=== PATIENT | male | born 1955 | race Caucasian/White ===

== ENCOUNTER 2024-12-02 10:25 | Emergency (ER) | payer MEDICARE, SELFPAY ==
[2024-12-02 10:42] VITALS: BP 118/71; PULSE 84; RESP 20; TEMP 36.8; O2SAT 99
--- NOTE | 2024-12-02 10:48 | ED.SKABFB ---
HPI - Skin/Abscess/Foreign Bdy General Chief complaint: Skin/Abscess/Foreign Body Stated complaint: poison allyson oak or sumac Time Seen by Provider: 12/02/24 10:48 Source: patient and RN notes reviewed Mode of arrival: ambulatory Limitations: no limitations History of Present Illness HPI narrative: 5-year-old male presents with concern for rash. Reports he was treated for poison allyson to her 3 weeks ago. Reports he was treated with triamcinolone and a Medrol Gato. Reports it mostly went away until the dose of the Medrol Gato decreased and then the rash came back. Reports he has been using done dystrophic, Lava soap and calamine lotion. Reports that triamcinolone did help very much. MD complaint: rash Related Data Home Medications ?Medication ?Instructions ?Recorded ?Confirmed ?Last Taken ?Type amlodipine 5 mg tablet mg 12/02/24 Unknown History atorvastatin 20 mg tablet mg 12/02/24 Unknown History levothyroxine 88 mcg tablet mcg 12/02/24 Unknown History lisinopril 5 mg tablet mg 12/02/24 Unknown History metformin 500 mg tablet mg 12/02/24 Unknown History methylprednisolone 4 mg tablets in mg 12/02/24 Unknown History a dose pack omeprazole 20 mg capsule,delayed mg 12/02/24 Unknown History release tamsulosin 0.4 mg capsule mg PO 12/02/24 Unknown History triamcinolone acetonide 0.1 % applic topical 12/02/24 Unknown History topical cream Allergies Allergy/AdvReac Type Severity Reaction Status Date / Time No Known Allergies Allergy Verified 12/02/24 10:39 Review of Systems Review of Systems: CONSTITUTIONAL: Denies malaise, chills, sweats, or fever. EYES: Denies redness, or discharge. ENT: Denies rhinorrhea, congestion, swollen lips, swollen tongue CARDIOVASCULAR: Denies chest pain, palpitations, or edema. RESPIRATORY: Denies cough or dyspnea. GASTROINTESTINAL: Denies abdominal pain, nausea, vomiting SKIN: Reports itchy rash on bilateral arms and legs MUSCULOSKELETAL: Denies joint pain or myalgia. NEUROLOGIC: Denies headache. All systems reviewed & are unremarkable except as noted in HPI and below PMFSH Comments At time of signature, agree with nursing past medical, surgical, social and family history. There is no relevant family history pertinent to the presenting complaint Exam Narrative: GENERAL: Well-appearing, well-nourished, and in no acute distress. HEAD: Normocephalic, atraumatic. EYES: PERRLA, conjunctivae clear, and EOMI. ENT: Mucous membranes moist. Oropharynx without edema, erythema or lesions. NECK: Supple. No lymphadenopathy CHEST: Clear to auscultation. No respiratory distress. HEART: Regular rate and rhythm. SKIN: Warm, dry. Raised Patches of erythematous papules noted to bilateral arms and legs NEURO: Alert and oriented x3. PSYCH: Normal mood and affect Course Course Emergency Course: Patient is aware of diagnosis, understands and agrees to treatment plan. Anticipatory guidance given. Patient agrees to follow-up as directed and is aware of reasons to seek care at the emergency department. Portions of this record may have been created with voice recognition software Level of Care: Express Care Visit Vital Signs Vital signs: Reviewed. MDM - Skin/Abscess/Foreign Bdy MDM Narrative Medical decision making narrative: Does not appear at this time to be erythema multiforme, bullous, SJS, TEN; no evidence at this time to suggest RMSF, endocarditis or Lyme disease; patient looks well, nontoxic and is tolerating oral intake; no neurologic signs or symptoms; no headache, photophobia or neck pain; afebrile; appropriate for initial outpatient treatment; discussed the importance of follow-up, patient agrees; question, viral exanthema, contact dermatitis, allergic dermatitis, eczema, urticaria. No soft palate or uvula edema, no tongue, lip edema or other mucosal involvement, no respiratory compromise, no stridor, no wheezing, no wheezing, no history of syncope, no hypotension, no nausea, vomiting, or diarrhea. Instructed patient to go to nearest ER immediately for any worsening symptoms including but not limited to: fever, spreading rash, pain, sore throat, headache, dizziness, chest pain, trouble breathing, or any symptoms concerning to the patient. Critical Care Time Critical Care Time Critical Care Time: No Discharge Plan Discharge Clinical Impression: Contact dermatitis Patient Disposition: Home Condition: Stable Instructions: Poison Allyson (ED) Additional Instructions: Prevention is always better than treatment. Learn to identify poison allyson, oak, and sumac and avoid it. Wear long sleeves, long pants, shoes, and socks. If you touched the plant, try to keep your hands away from your eyes, mouth, and face. Wash the skin thoroughly with soap and cool water as soon as possible. Scrub under the fingernails with a brush to prevent spreading of the resin to other parts of the body by touching or scratching. Remember to wash any clothing with soap and hot water as the resin can persist for many months and cause further dermatitis. You should NOT use antihistamine creams or lotions, anesthetic creams containing benzocaine, or antibiotic creams containing neomycin or bacitracin to the skin. These creams or ointments could make the rash worse. Antihistamines do not help to relieve itching caused by poison allyson dermatitis. For some people, adding oatmeal to a bath, applying cool wet compresses, and applying calamine lotion may help to relieve itching. Once the blisters begin weeping fluid, astringents containing aluminum acetate (Burow's solution) and Domeboro may help to relieve the rash. IF symptoms get worse to follow up with your primary care provider or seek ER visit if you developing difficulty breathing, weakness, dizziness. Patient Language: Ukrainian Prescriptions: New prednisone 10 mg tablet 10 mg PO DAILY Qty: 42 0RF Rx Instructions: 6 tabs days 1-2, 5 tabs days 3-4, 4 tabs days 5-6, 3 tabs days 7-8, 2 tabs days 9-10, 1 tab days 11-12 No Action metformin 500 mg tablet atorvastatin 20 mg tablet amlodipine 5 mg tablet triamcinolone acetonide 0.1 % cream TOPICAL levothyroxine 88 mcg tablet tamsulosin 0.4 mg capsule PO omeprazole 20 mg capsule,delayed release(DR/EC) lisinopril 5 mg tablet methylprednisolone 4 mg tablets,dose pack Follow-up/Referrals: Aleks,Mikhail Livingston MD [Primary Care Provider] - Time of Disposition: 10:55
== END 2024-12-02 11:01 | disposition home or self-care (01) ==
PROVIDERS: Emergency Provider Nurse Practitioner; PCP Internal Medicine
DX: L25.9 Unspecified contact dermatitis, unspecified cause (principal); I10 Essential (primary) hypertension; E78.00 Pure hypercholesterolemia, unspecified; E11.9 Type 2 diabetes mellitus without complications; E03.9 Hypothyroidism, unspecified
CPT/HCPCS: 99213; G0463

== ENCOUNTER 2024-12-21 12:59 | Emergency (ER) | payer MEDICARE, SELFPAY ==
--- OUTSIDE RECORDS SUMMARY | 2024-12-21 13:00 | XMS_ITS | Encounter Summary ---
Author Organization [facility] Address 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 CHIEF COMPLAINT Patient here for follow up hyperlipidemia, hypothyroidism. HISTORY: HISTORY: 244.9-HYPOTHYROIDISM The hypothyroidism is stable. 272.4-HYPERLIPIDEMIA The patient is tolerating the medications. 461.9-SINUSITIS UNSPECIFIED inc ear fullness past few days seems to correspond with vertigo 715.00-OSTEOARTHROSIS AND ALLIED DISORDERS still with wrist pain 780.4-VERTIGO/DIZZINESS recurrent with nausea vomitting worse with sinus ROS: ENDOCRINE: No heat or cold intolerance, no excessive thirst. CARDIAC: No chest pain, palpitations, orthopnea, dyspnea on exertion, or paroxysmal nocturnal dyspnea. RESPIRATORY: No dyspnea, cough, hemoptysis or wheezing. : No dysuria or hematuria. GI: No abdominal pain, nausea, vomiting, diarrhea, constipation, melena, or hematochezia. PAST MEDICAL HISTORY: reviewed FAMILY HISTORY: brother young with NH SOCIAL HISTORY: TOBACCO USE: Has no significant smoking history. PHYSICAL EXAMINATION: CONSTITUTIONAL: GENERAL APPEARANCE: Healthy appearing patient in no distress. EARS, NOSE, MOUTH AND THROAT: EARS: EFFUSION PRESENT BILATERALLY, TYMPANIC MEMBRANES INFLAMED BILATERALLY. ORAL: Inspection of gums, lips, palate, and teeth normal. No scars, lesions, or masses. Oral mucosaunremarkable with non-inflamed posterior pharynx. NECK/THYROID: Trachea midline. No thyroid enlargement, tenderness, or mass. No supraclavicular or cervical adenopathy. RESPIRATORY: Clear to auscultation and percussion. Normal respiratory effort. CARDIOVASCULAR: CARDIAC: Regular rhythm. No murmurs, rubs, or gallops. ARTERIAL: No aortic bruits. EDEMA/VARICOSITIES OF EXTREMITIES: No edema or varicosities. GASTROINTESTINAL: ABDOMEN: Soft, non-tender, without masses. Bowel sounds active. LIVER/SPLEEN/KIDNEY: No hepatosplenomegaly, tenderness or nodularity. Kidneys not palpable. NEUROLOGIC: CRANIAL NERVES: ic designer gate arrays II-XII grossly intact. ASSESSMENT/PLAN: 244.9-HYPOTHYROIDISM cont med, rechekclab LAB ORDERS: 3 mo Order number: [id number] Test Ordered: COMPREHENSIVE METABOLIC PANEL & GFR 1112 Order number: [id number] Test Ordered: LIPID PANEL 1078 Order number: [id number] Test Ordered: TSH 1720 272.4-HYPERLIPIDEMIA enc diet and ex cont med--change discussed recent zetia issues MEDICATIONS: SIMVASTATIN ORAL TABLET 40 MG, 1 Every Day, 90 Dispensed, 3 Fills, status: NEW PRESCRIPTION, 08/31/2007. 461.9-SINUSITIS UNSPECIFIED with om, add med, zyrtec otc and flonase, ENT if sx recurrent discussed MEDICATIONS: FLONASE NASAL SUSPENSION 50 MCG/ACT, 2 Every Morning, 3 Dispensed, 3 Fills, status: CONTINUED, 08/31/2007. 530.81-GASTROESOPHAGEAL REFLUX (GERD) off med has been stable 780.4-VERTIGO/DIZZINESS use med prn PREVENTIVE COUNSELING The patient was counseled regarding diet, regular sustained exercise for at least 30 minutes 3-4 times per week. Patient Education: Risks, benefits, and possible side effects of medication(s) were reviewed with the patient. Education sheet given to the patient. The patient was allowed to ask questions to statedsatisfaction, as well as the spouse. RETURN VISIT : Patient instructed to return in 3 months. Electronically Signed by: Mikhail Fink MD on Friday, August 31, 2007 documented in this encounter Plan of Treatment Upcoming Encounters Date Type Department Care Team (Late st Contact Info) Description 06/02/2025 11:40 AM ORIENTAL RUG REPAIRER Office Visit [facility] Primary Care [address] [phone] Mikhail Fink MD [address] [place] [phone] documented as of this encounter Visit Diagnoses Not on filedocumented in this encounter Care Teams Care Director Rn Relationship Specialty Start Date End Date Mikhail Fink MD PCP - General 11/19/07 documented as of this encounter
--- OUTSIDE RECORDS SUMMARY | 2024-12-21 13:00 | XMS_ITS | Referral Summary ---
Author Organization [facility] Address [address] [place] [address] Care Team Providers Care College Service Officer Name Role Phone Mikhail Fink MD Primary Care Provider + Allergies Active Allergy Reactions Criticality Noted Date Comments Cephalexin Rash Medium 01/27/2009 Sulfa (Sulfonamide Antibiotics) Fever,Nausea & Vomiting,Nausea And Vomiting Medium 01/27/2009 Medications OMEGA-3 FATTY LBOTL-OCE-EOU ORAL Take by mouth Active amLODIPine (NORVASC) 5 mg tablet 9 Active aspirin 81 mg enteric coated tablet 1 Every Day 7 Active atorvastatin (LIPITOR) 20 mg tablet 9 Active cholecalciferol (VITAMIN D-3) 1,000 unit capsule Take 1 capsule (1,000 Units total) by mouth daily 2 Active levothyroxine (SYNTHROID, LEVOTHROID) 88 mcg tablet 9 Active lisinopril (PRINIVIL,ZESTR IL) 5 mg tablet 9 Active metFORMIN (GLUCOPHAGE) 500 mg tablet 9 Active acetaminophen-c odeine (TYLENOL with CODEINE #4) 300-60 mg per tablet Take 1 tablet by mouth every 6 (six) hours as needed for pain 20 tablet 9 Active mupirocin (BACTROBAN) 2 % ointment Apply topically daily With each dressing change. May substitute with 15 g or 30 g tube 22 g 9 Active meloxicam (MOBIC) 15 mg tablet 9 Active tamsulosin (FLOMAX) 0.4 mg extended release capsule Take 1 capsule (0.4 mg total) by mouth daily 5 capsule 4 Active sod sulf-pot chloride-mag sulf 1.479-0.188- 0.225 gram tabletIndicatio ns:Bowel Evacuation Take first dose evening prior to exam and repeat morning of exam as instructed 24 tablet 5 Active omeprazole (PriLOSEC) 20 mg capsule Take 1 capsule (20 mg total) by mouth daily 5 Active multivitamin tablet Take 1 tablet by mouth daily Active Active Problems Problem Noted Date Diagnosed Date Hx of colonic polyps 06/27/2024 Laceration of left ring fing er with damage to nail without foreign body 11/03/2018 Crushing injury of left thumb 11/03/2018 Displaced fracture of distal phalanx of left ring finger, initial encounter for open fracture 11/03/2018 Primary osteoarthritis of both feet 03/26/2018 Abnormal glucose 12/30/2011 Osteoarthritis 07/09/2004 Hypothyroidism 04/02/2004 Esophageal reflux 11/25/2003 Hyperlipidemia 11/25/2003 Immunizations Immunization Administration Dates Next Due Influenza, Trivalent, IM (MDV) 8,04/11/2017,03/12/2014,03/21/2013,1 Tdap 09/21/2017,03/30/2007 ZOSTER LIVE 05/22/2014 ZOSTER Recombinant 10/17/2018 Social History Tobacco Use Types Packs/Day Years Used Date Smoking Tobacco: Former Smokeless Tobacco: Never Alcohol Use Standard Drinks/Week Comments Not Currently 0 (1 standard drink = 0.6 oz pur e alcohol) AUDIT-C Answer Date Recorded Q1: How often do you have a drink containing alcohol? Never 07/24/2024 Q2: How many drinks containi ng alcohol do you have on a typical day when you are drinking? Patient does not drink Q3: How often do you have si x or more drinks on one occasion? Never 07/24/2024 Personal Safety Answer Date Recorded Have you ever been in or are you currently in a harmful physical or emotional relationship or is someone making you feel afraid or unsafe? Denies 07/24/2024 Sex and Gender Information Value Date Recorded Sex Assigned at Not on file Legal Sex Male 3:53 PM SHOE REPAIRER Gender Identity Not on file Sexual Orientation Not on file Last Filed Vital Signs Vital Sign Reading Time Taken Comments Blood Pressure 133/73 07/24/2024 11:17 AM SHOE REPAIRER Pulse 68 07/24/2024 11:17 AM SHOE REPAIRER Temperature 36.9 C (98.4 F) 07/24/2024 8:59 AM SHOE REPAIRER Respiratory Rate 16 07/24/2024 11:17 AM SHOE REPAIRER Oxygen Saturation 95% 07/24/2024 11:17 AM SHOE REPAIRER Inhaled Oxygen Concentration - - Weight 96.2 kg (212 lb) 07/24/2024 8:59 AM SHOE REPAIRER Height 182.9 cm (6') 07/24/2024 8:59 AM SHOE REPAIRER Body Mass Index 28.75 07/24/2024 8:59 AM SHOE REPAIRER Plan of Treatment Not on file Procedures Procedure Name Priority Date/Time Associated Diagnosis Comments COLONOSCOPY 07/24/2024 10:[address] ABDOMEN PELVIS W CONTRAST ED 11/01/2023 2:40 PM CDT from Last 3 Months or Most Recently Relevant to Health Maintenance Results * Colonoscopy (07/24/2024 10:19 AM SHOE REPAIRER) Anatomical Region Laterality Modality Other Narrative Procedure Note Javier Alanis MD - 07/24/2024 10:19 AM CST ENDOSCOPY LAB Patient Name: Daniel Cunningham Procedure Date: 07/24/2024 10:19 AM Admit Type: Outpatient Room: [facility] Date of : 1955 Instrument Name: [id number] Gender: Male Note Status: Finalized Procedure: Colonoscopy Indications: High risk colon cancer surveillance: Personalhistory of colonic polyps Providers: Javier Alanis M.D. Referring MD: Mikhail Fink M.D. Medicines: See the Anesthesia note for documentation of the administered medications Complications: No immediate complications. Estimated blood loss: Minimal. Estimated Blood Loss: Estimated blood loss was minimal. Procedure: Pre-Anesthesia Assessment: - Prior to the procedure, a History and Physicalwas performed, and patient medications, allergies and sensitivities were reviewed. The patient'stolerance of previous anesthesia was reviewed. - The risks and benefits of the procedure and the sedation options and risks were discussed with the patient. All questions were answered and informed consent was obtained. The benefits, risks and alternatives of theprocedure and sedation were discussed and informed consentwas obtained. All questions were answered. Please referto the signed informed consent document in the medical record. The scope was passed under direct vision.The Colonoscope was introduced through the anus and advanced to the the terminal ileum, with identification of the appendiceal orifice and IC valve. The bowel preparation used was SUTAB viasplit dose instruction. The quality of the bowelpreparation was excellent. Bowel prep was administered using a split dose. Findings: The digital rectal exam was normal. Pertinent negatives include no palpable rectal lesions. The colon (entire examined portion) was moderately redundant. A few diverticula were found in the sigmoid colon. A 4 mm polyp was found in the proximal ascending colon. The polyp was sessile. The polyp was removed with a jumbo cold forceps. Resectionand retrieval were complete. The exam was otherwise without abnormality on direct and retroflexion views. Impression: - Redundant colon. - Diverticulosis in the sigmoid colon. - One 4 mm polyp in the proximal ascending colon, removed with a jumbo cold forceps. Resected and retrieved. - The examination was otherwise normal on directand retroflexion views. Recommendation: - Repeat colonoscopy in 5 years for surveillancebased on pathology results. Electronically signed by Javier Alanis M.D. Javier Alanis M.D. 07/24/2024 11:23:04 AM Number of Addenda: 0 Note Initiated On: 07/24/2024 10:19 AM Scope Withdrawal Time: 0 hours 5 minutes 6 seconds Scope In: 10:47:29 AM Scope Out: 10:58:29 AM us Javier Alanis MD ENDOSCOPY PROCEDURES Fin al Result * CT Abdomen Pelvis W Contrast (11/01/2023 2:40 PM CDT) Anatomical Region Laterality Modality Body N/A Computed Tomogra phy 11/01/2023 3:00 PM CDT Narrative 11/01/2023 3:07 PM CDT EXAM DESCRIPTION: CT ABDOMEN PELVIS W CONTRAST REASON FOR STUDY: Abdominal pain, acute, nonlocalized C/o abdominal pain, low back pain, constipation x 2 weeks. Pt also reports low grade fevers. Pt reports he was given stool softeners and Lactulose, he did have a bowel movement but is still having pain. TECHNIQUE: CT scan of the abdomen and pelvis performed with intravenous and without oral contrast using helical scanning technique with dynamic intravenous contrast injection. Reconstructed coronal and sagittal MPR images reviewed. All images stored on PACS. Automated exposure control was used as a dose optimization technique for this examination. CONTRAST TYPE/DOSE: 75mL of IOVERSOL 350 MG IODINE/ML INTRAVENOUS SYRINGE injected via intravenous COMPARISON: None FINDINGS: LOWER CHEST: No significant pulmonary abnormalities. No effusion. LIVER: Normal size. No identified cystic or solid masses. GALLBLADDER: No stones, wall thickening or pericholecystic fluid BILE DUCTS: No intrahepatic or extrahepatic ductal dilatation. SPLEEN: Normal size. No focal lesions. PANCREAS: No identified cystic or solid masses. No significant calcifications. No adjacent inflammation or peripancreatic fluid collections. Pancreatic duct not dilated. ADRENALS: Normal. KIDNEYS/URINARY TRACT: There is mild right-sided hydronephrosis and hydroureter with a 5 mm obstructing calculus in the right ureterovesicular junction. There are bilateral renal cysts and a few subcentimeter low-attenuation lesions which are too small to be characterized. Urinary bladder is mostly decompressed. GI: Tiny hiatal hernia. Stomach is decompressed. No dilated or thick-walled loops of bowel appreciated. Appendix is not definitively seen, however there are no inflammatory changes near the cecum. No significant diverticular disease. Prominent amount of gas and liquid stool within the colon, which can be seen in diarrheal state. PERITONEUM: No ascites or free air. RETROPERITONEUM: No mass or adenopathy. REPRODUCTIVE: No significant abnormality. VASCULATURE: No abdominal aortic aneurysm. MUSCULOSKELETAL: There is an indeterminate 2.2 x 1.5 x 2.6 cm lesion in the right iliac bone with 2 adjacent smaller sclerotic lesions. OTHER: No other abnormality. IMPRESSION: 1. Mild right-sided hydronephrosis and hydroureter with a 5 mm obstructing calculus in the right ureterovesicular junction. 2. Prominent amount of gas and liquid stool within the colon, which can be seen in diarrheal state. 3. Indeterminate 2.6 cm lesion in the right iliac bone with two adjacent smaller sclerotic lesions. Recommend correlation with prior imaging if available. Consider MRI pelvis with contrast for further evaluation. THIS IS AN ELECTRONICALLY VERIFIED FINAL REPORT 11/01/2023 3:07 PM - Electronically signed by August Cole M.D. AM: AM Report ID: [id number] Reading Location: [id number] Procedure Note August Cole MD - 11/01/2023 EXAM DESCRIPTION: CT ABDOMEN PELVIS W CONTRAST REASON FOR STUDY: Abdominal pain, acute, nonlocalized C/o abdominal pain, low back pain, constipation x 2 weeks. Pt also reportslow grade fevers. Pt reports he was given stool softeners and Lactulose, hedid have a bowel movement but is still having pain. TECHNIQUE: CT scan of the abdomen and pelvis performed with intravenousand without oral contrast using helical scanning technique with dynamic intravenous contrast injection. Reconstructed coronal and sagittal MPRimages reviewed. All images stored on PACS. Automated exposure control was usedas a dose optimization technique for this examination. CONTRAST TYPE/DOSE: 75mL of IOVERSOL 350 MG IODINE/ML INTRAVENOUSSYRINGE injected via intravenous COMPARISON: None FINDINGS: LOWER CHEST: No significant pulmonary abnormalities. No effusion. LIVER: Normal size. No identified cystic or solid masses. GALLBLADDER: No stones, wall thickening or pericholecystic fluid BILE DUCTS: No intrahepatic or extrahepatic ductal dilatation. SPLEEN: Normal size. No focal lesions. PANCREAS: No identified cystic or solid masses. No significant calcifications. No adjacent inflammation or peripancreatic fluidcollections. Pancreatic duct not dilated. ADRENALS: Normal. KIDNEYS/URINARY TRACT: There is mild right-sided hydronephrosis and hydroureter with a 5 mm obstructing calculus in the right ureterovesicular junction. There are bilateral renal cysts and a few subcentimeter low-attenuation lesions which are too small to be characterized.Urinary bladder is mostly decompressed. GI: Tiny hiatal hernia. Stomach is decompressed. No dilated or thick-walled loops of bowel appreciated. Appendix is not definitivelyseen, however there are no inflammatory changes near the cecum. No significant diverticular disease. Prominent amount of gas and liquid stool within the colon, which can be seen in diarrheal state. PERITONEUM: No ascites or free air. RETROPERITONEUM: No mass or adenopathy. REPRODUCTIVE: No significant abnormality. VASCULATURE: No abdominal aortic aneurysm. MUSCULOSKELETAL: There is an indeterminate 2.2 x 1.5 x 2.6 cm lesion inthe right iliac bone with 2 adjacent smaller sclerotic lesions. OTHER: No other abnormality. IMPRESSION: 1. Mild right-sided hydronephrosis and hydroureter with a 5 mmobstructing calculus in the right ureterovesicular junction. 2. Prominent amount of gas and liquid stool within the colon, which canbe seen in diarrheal state. 3. Indeterminate 2.6 cm lesion in the right iliac bone with two adjacent smaller sclerotic lesions. Recommend correlation with prior imaging if available. Consider MRI pelvis with contrast for further evaluation. THIS IS AN ELECTRONICALLY VERIFIED FINAL REPORT 11/01/2023 3:07 PM - Electronically signed by August Cole M.D. AM: AM Report ID: [id number] Reading Location: [id number] Margarita MENEZES IMG CT PROCEDURES Final Result from Last 3 Months or Most Recently Relevant to Health Maintenance [facility] AETNA MEDICARE AETNA MEDICARE Care Teams College Service Officer Relationship Specialty Start Date End Date Mikhail Fink MD PCP - General 11/03/18
--- OUTSIDE RECORDS SUMMARY | 2024-12-21 13:00 | XMS_ITS | Encounter Summary ---
Author Organization [facility] Address [address] [place] [address] Phone Care Team Providers Care Caddie Supervisor Name Role Phone Mikhail Fink MD Primary Care Provider + Encounter Details Date Type Department Care Team (Late st Contact Info) Description 07/10/2024 Orders Only [facility] Surgery [address] [place] [id number] Javier Alanis MD [address] [place] [address] Social History Tobacco Use Types Packs/Day Years Used Date Smoking Tobacco: Former Smokeless Tobacco: Never Alcohol Use Standard Drinks/Week Comments Not Currently 0 (1 standard drink = 0.6 oz pur e alcohol) Personal Safety Answer Date Recorded Have you ever been in or are you currently in a harmful physical or emotional relationship or is someone making you feel afraid or unsafe? Denies 11/01/2023 Sex and Gender Information Value Date Recorded Sex Assigned at Not on file Legal Sex Male 3:53 PM NETWORK OPERATIONS SPECIALIST Gender Identity Not on file Sexual Orientation Not on file documented as of this encounter Plan of Treatment Not on file documented as of this encounter Visit Diagnoses Not on filedocumented in this encounter Care Teams Caddie Supervisor Relationship Specialty Start Date End Date Mikhail Fink MD PCP - General 11/03/18 documented as of this encounter
--- OUTSIDE RECORDS SUMMARY | 2024-12-21 13:00 | XMS_ITS | Encounter Summary ---
Author Organization [facility] Address [address] [place] [address] Care Team Providers Care Skirt Panel Assembler Name Role Phone Mikhail Fink MD Primary Care Provider Encounter Details Date Type Department Care Team (Late st Contact Info) Description 08/31/2007 Outpatient Historical [facility] Internal Medicine [address] [address] Mikhail Fink MD [address] [place] [address] [address] [place] [address] Social History Tobacco Use Types Packs/Day Years Used Date Smoking Tobacco: Never Assessed Sex and Gender Information Value Date Recorded Sex Assigned at Not on file Legal Sex Male 3:10 AM SECURITIES DEALER Gender Identity Not on file Sexual Orientation Not on file documented as of this encounter Plan of Treatment Upcoming Encounters Date Type Department Care Team (Late st Contact Info) Description 06/02/2025 11:40 AM SECURITIES DEALER Office Visit [facility] Primary Care [address] [place] [address] Mikhail Fink MD [address] [place] [address] [address] [place] [address] documented as of this encounter Visit Diagnoses Not on filedocumented in this encounter Care Teams Skirt Panel Assembler Relationship Specialty Start Date End Date Mikhail Fink MD PCP - General 11/19/07 documented as of this encounter
--- OUTSIDE RECORDS SUMMARY | 2024-12-21 13:00 | XMS_ITS | Encounter Summary ---
Author Organization [facility] Address [address] [place] [address] Care Team Providers Care Product Steward Name Role Phone Mikhail Fink MD Primary Care Provider Encounter Details Date Type Department Care Team (Late st Contact Info) Description 10/10/[address] [facility] Internal Medicine [address] [address] Mikhail Fink MD [address] [place] [address] [address] [place] [address] Social History Tobacco Use Types Packs/Day Years Used Date Smoking Tobacco: Never Assessed Sex and Gender Information Value Date Recorded Sex Assigned at Not on file Legal Sex Male 3:10 AM CUSTOMER SERVICE MANAGER Gender Identity Not on file Sexual Orientation Not on file documented as of this encounter Plan of Treatment Upcoming Encounters Date Type Department Care Team (Late st Contact Info) Description 06/02/2025 11:40 AM CUSTOMER SERVICE MANAGER Office Visit [facility] Primary Care [address] [place] [address] Mikhail Fink MD [address] [place] [address] [address] [place] [address] documented as of this encounter Visit Diagnoses Not on filedocumented in this encounter Care Teams Product Steward Relationship Specialty Start Date End Date Mikhail Fink MD PCP - General 11/19/07 documented as of this encounter
--- OUTSIDE RECORDS SUMMARY | 2024-12-21 13:00 | XMS_ITS | Encounter Summary ---
Author Organization [facility] Address [address] [place] [address] Care Team Providers Care Forwarder Operator Name Role Phone Mikhail Fink MD Primary Care Provider [phone] Encounter Details Date Type Department Care Team (Late st Contact Info) Description 12/22/2006 Outpatient Historical [facility] Internal Medicine [address] [address] Mikhail Fink MD [address] [place] [address] Social History Tobacco Use Types Packs/Day Years Used Date Smoking Tobacco: Never Assessed Sex and Gender Information Value Date Recorded Sex Assigned at Not on file Legal Sex Male 3:10 AM IT SECURITY ADMINISTRATOR Gender Identity Not on file Sexual Orientation Not on file documented as of this encounter Last Filed Vital Signs Vital Sign Reading Time Taken Comments Blood Pressure 120/80 12/22/2006 9:15 AM CDT Pulse - - Temperature - - Respiratory Rate - - Oxygen Saturation - - Inhaled Oxygen Concentration - - Weight 93.4 kg (206 lb) 12/22/2006 9:15 AM CDT Height - - Body Mass Index - - documented in this encounter Plan of Treatment Upcoming Encounters Date Type Department Care Team (Late st Contact Info) Description 06/02/2025 11:40 AM IT SECURITY ADMINISTRATOR Office Visit [facility] Primary Care [address] [place] [address] Mikhail Fink MD [address] [facility] [address] [place] [address] documented as of this encounter Visit Diagnoses Not on filedocumented in this encounter Care Teams Forwarder Operator Relationship Specialty Start Date End Date Mikhail Fink MD PCP - General 11/19/07 documented as of this encounter
--- OUTSIDE RECORDS SUMMARY | 2024-12-21 13:00 | XMS_ITS | Encounter Summary ---
Author Organization [facility] Address [address] [place] [address] Care Team Providers Care Water Analyst Name Role Phone Mikhail Fink MD Primary Care Provider [phone] Encounter Details Date Type Department Care Team (Late st Contact Info) Description 08/31/2007 Outpatient Historical [facility] Internal Medicine [address] [address] Mikhail Fink MD [address] [place] [address] [address] [place] [address] Social History Tobacco Use Types Packs/Day Years Used Date Smoking Tobacco: Never Assessed Sex and Gender Information Value Date Recorded Sex Assigned at Not on file Legal Sex Male 3:10 AM SCHOOL PHYSICAL THERAPIST Gender Identity Not on file Sexual Orientation Not on file documented as of this encounter Plan of Treatment Upcoming Encounters Date Type Department Care Team (Late st Contact Info) Description 06/02/2025 11:40 AM SCHOOL PHYSICAL THERAPIST Office Visit [facility] Primary Care [address] [place] [address] Mikhail Fink MD [address] [place] [address] [address] [place] [address] documented as of this encounter Visit Diagnoses Not on filedocumented in this encounter Care Teams Water Analyst Relationship Specialty Start Date End Date Mikhail Fink MD PCP - General 11/19/07 documented as of this encounter
--- OUTSIDE RECORDS SUMMARY | 2024-12-21 13:00 | XMS_ITS | Encounter Summary ---
Author Organization [facility] Address [address] [place] [address] Care Team Providers Care Online Marketing Analyst Name Role Phone Mikhail Fink MD Primary Care Provider [phone] Encounter Details Date Type Department Care Team (Late st Contact Info) Description 10/10/2006 Outpatient Historical [facility] Internal Medicine [address] [address] Mikhail Fink MD [address] [place] [address] [address] [place] [address] Social History Tobacco Use Types Packs/Day Years Used Date Smoking Tobacco: Never Assessed Sex and Gender Information Value Date Recorded Sex Assigned at Not on file Legal Sex Male 3:10 AM SKILLED NURSING FACILITIES PROFESSIONAL Gender Identity Not on file Sexual Orientation Not on file documented as of this encounter Plan of Treatment Upcoming Encounters Date Type Department Care Team (Late st Contact Info) Description 06/02/2025 11:40 AM SKILLED NURSING FACILITIES PROFESSIONAL Office Visit [facility] Primary Care [address] [place] [address] Mikhail Fink MD [address] [place] [address] [address] [place] [address] documented as of this encounter Visit Diagnoses Not on filedocumented in this encounter Care Teams Online Marketing Analyst Relationship Specialty Start Date End Date Mikhail Fink MD PCP - General 11/19/07 documented as of this encounter
--- OUTSIDE RECORDS SUMMARY | 2024-12-21 13:00 | XMS_ITS | Clinical Summary ---
Author Organization [facility] Address [address] [place] [address] Care Team Providers Care Quality Assurance Clerk Name Role Phone Mikhail Fink MD Primary Care Provider + Allergies Active Allergy Reactions Criticality Noted Date Comments Cephalexin Rash Medium 01/27/2009 Sulfa (Sulfonamide Antibiotics) Fever,Nausea & Vomiting,Nausea And Vomiting Medium 01/27/2009 Medications OMEGA-3 FATTY [id number] ORAL Take by mouth Active amLODIPine (NORVASC) [...] 09/21/2017,03/30/2007 ZOSTER LIVE 05/22/2014 ZOSTER Recombinant 10/17/2018 Surgical History Surgery Date Site/Laterality Comments CATARACT EXTRACTION, BILATERAL Bilateral RETINA SURGERY macular degeneration srgy COLONOSCOPY SEPTORHINOPLASTY Medical History Medical History Date Comments Hypertension Diabetes mellitus (HCC) Thyroid disease Hyperlipemia Arthritis Rash Thyroid condition Wears glasses Colon polyp Social History Tobacco Use Types Packs/Day Years [...] on file Legal Sex Male 3:53 PM OXYGEN PLANT OPERATOR Gender Identity Not on file Sexual Orientation Not on file Obstetrics History Last Filed Vital Signs Vital Sign Reading Time Taken Comments Blood Pressure 133/73 07/24/2024 11:17 AM OXYGEN PLANT OPERATOR Pulse 68 07/24/2024 11:17 AM OXYGEN PLANT OPERATOR Temperature 36.9 C (98.4 F) 07/24/2024 8:59 AM OXYGEN PLANT OPERATOR Respiratory Rate 16 07/24/2024 11:17 AM OXYGEN PLANT OPERATOR Oxygen Saturation 95% 07/24/2024 11:17 AM OXYGEN PLANT OPERATOR Inhaled Oxygen Concentration - - Weight 96.2 kg (212 lb) 07/24/2024 8:59 AM OXYGEN PLANT OPERATOR Height 182.9 cm (6') 07/24/2024 8:59 AM OXYGEN PLANT OPERATOR Body Mass Index 28.75 07/24/2024 8:59 AM OXYGEN PLANT OPERATOR Plan of Treatment Health Maintenance Due Date Last Done Comments Depression Screening 1955 Fall Risk Assessment 1955 Hepatitis C Screening 1955 Hepatitis B Screening 12/25/1971 Well Visit 65+ 2018 Pneumococcal vaccine 65+ (2 of 2 - PPSV23) 01/11/2020 01/10/2019 DTaP/Tdap/Td Vaccine (3 - Td or Tdap) 09/22/2027 09/21/2017, 03/30/2007 Colon Cancer Screening-Colonoscopy 07/24/2034 07/24/2024 Zoster Vaccine Completed 01/10/2019, 05/0 01/2019, 05/22/2014 Abdominal Aortic Aneurysm (A AA) Screen Completed 11/01/2023 Influenza Vaccine Completed 04/29/2024, , 03/13/2020, Additional history exists Colon Cancer Screening-CT Colonography Discontinued 07/24/2024 Colon Cancer Screening-DNA Stool Discontinued 07/24/19 Colon Cancer Screening-FIT Discontinued 07/24/2024 Colon Cancer Screening-Sigmoidoscopy Discontinued 07/24/2024 Procedures Procedure Name Priority Date/Time Associated Diagnosis Comments COLONOSCOPY 07/24/2024 10:19 AM OXYGEN PLANT OPERATOR CT ABDOMEN PELVIS W CONTRAST ED 11/01/2023 2:40 PM CDT from Last 3 Months or Most Recently Relevant to Health Maintenance Results * Colonoscopy (07/24/2024 10:19 AM OXYGEN PLANT OPERATOR) Anatomical Region Laterality Modality Other Narrative Procedure Note Javier Alanis MD - 07/24/2024 10:19 AM CST ENDOSCOPY LAB Patient Name: Daniel Cunningham Procedure Date: 07/24/2024 10:19 AM Admit Type: Outpatient Room: [facility] Date of : 1955 Instrument Name: [id number] [...] August Cole M.D. AM: AM Report ID: [id number] Reading Location: [id number] Procedure Note August Cole MD - 11/01/2023 [...] August Cole M.D. AM: AM Report ID: [id number] Reading Location: [place] [address] PROCEDURES Final Result from Last 3 Months or Most Recently Relevant to Health Maintenance Insurance [facility] HMO/POS T MEDICARE MEDICARE Care Teams Quality Assurance Clerk Relationship Specialty Start Date End Date Mikhail Fink MD PCP - General 11/03/18
--- OUTSIDE RECORDS SUMMARY | 2024-12-21 13:01 | XMS_ITS | Encounter Summary ---
Author Organization [facility] Address [address] [place] [address] Care Team Providers Care Willow Worker Name Role Phone Mikhail Fink MD Primary Care Provider [phone] Encounter Details Date Type Department Care Team (Late st Contact Info) Description 12/23/2005 Outpatient Historical [facility] Internal Medicine [address] [address] Mikhail Fink MD [address] [place] [address] Social History Tobacco Use Types Packs/Day Years Used Date Smoking Tobacco: Never Assessed Sex and Gender Information Value Date Recorded Sex Assigned at Not on file Legal Sex Male 3:10 AM CARTRIDGE LOADER Gender Identity Not on file Sexual Orientation Not on file documented as of this encounter Last Filed Vital Signs Vital Sign Reading Time Taken Comments Blood Pressure 112/70 12/23/2005 10:00 AM CDT Pulse - - Temperature - - Respiratory Rate - - Oxygen Saturation - - Inhaled Oxygen Concentration - - Weight 91.2 kg (201 lb) 12/23/2005 10:00 AM CDT Height - - Body Mass Index - - documented in this encounter Plan of Treatment Upcoming Encounters Date Type Department Care Team (Late st Contact Info) Description 06/02/2025 11:40 AM CARTRIDGE LOADER Office Visit [facility] Primary Care [address] [place] [address] Mikhail Fink MD [address] [facility] [address] [place] [address] documented as of this encounter Visit Diagnoses Not on filedocumented in this encounter Care Teams Willow Worker Relationship Specialty Start Date End Date Mikhail Fink MD PCP - General 11/19/07 documented as of this encounter
--- OUTSIDE RECORDS SUMMARY | 2024-12-21 13:01 | XMS_ITS | Encounter Summary ---
Author Organization [facility] Address [address] [place] [address] Care Team Providers Care Cut File Clerk Name Role Phone Mikhail Fink MD Primary Care Provider [phone] Encounter Details Date Type Department Care Team (Late st Contact Info) Description 10/26/2021 [facility] Internal Medicine [address] [address] Fely Ward, ANP [address] [address] Social History Tobacco Use Types Packs/Day Years Used Date Smoking Tobacco: Never Smokeless Tobacco: Never Alcohol Use Standard Drinks/Week Comments No 0 (1 standard drink = 0.6 oz pur e alcohol) Financial Resource Strain Answer Date R ecorded How hard is it for you to pa y for the very basics like food, housing, medical care, and heating? Not hard at all 10/11/2021 Food Insecurity Answer Date Recorded In the past 12 months, have you worried that your food would run out before you had money to buy more? Never true 10/11/2021 In the past 12 months, did y ou run out of food and didn't have money to buy more? Never true 10/11/2021 Transportation Needs Answer Date Record ed In the past 12 months, has l ack of transportation kept you from medical appointments or from getting medications? No 10/11/2021 Lack of Transportation (Non-Medical) Not on file 10/11/2021 Sex and Gender Information Value Date Recorded Sex Assigned at Not on file Legal Sex Male 3:10 AM LIPCOAT SPRAYER Gender Identity Not on file Sexual Orientation Not on file COVID-19 Exposure Response Date Recorded In the last 10 days, have yo u been in contact with someone who was confirmed or suspected to have Coronavirus/COVID-19? No / Unsure 10/11/2021 10:05 AM CDT documented as of this encounter Plan of Treatment Upcoming Encounters Date Type Department Care Team (Late st Contact Info) Description 06/02/2025 11:40 AM LIPCOAT SPRAYER Office Visit [facility] Primary Care [address] [place] [address] Mikhail Fink MD [address] [place] [address] documented as of this encounter Visit Diagnoses Not on filedocumented in this encounter Care Teams Cut File Clerk Relationship Specialty Start Date End Date Mikhail Fink MD PCP - General 11/19/07 documented as of this encounter
--- OUTSIDE RECORDS SUMMARY | 2024-12-21 13:01 | XMS_ITS | Encounter Summary ---
Author Organization [facility] Address [address] [place] [address] Care Team Providers Care Patient Registration Representative Name Role Phone Mikhail Fink MD Primary Care Provider [phone] Encounter Details Date Type Department Care Team (Late Contact Info) Description 11/09/2005 Outpatient [facility] Internal Medicine [address] [address] Mikhail Fink MD [address] [place] [address] Social History Tobacco Use Types Packs/Day Years Used Date Smoking Tobacco: Never Assessed Sex and Gender Information Value Date Recorded Sex Assigned at Not on file Legal Sex Male 3:10 AM JIGMAKER Gender Identity Not on file Sexual Orientation Not on file documented as of this encounter Last Filed Vital Signs Vital Sign Reading Time Taken Comments Blood Pressure 120/70 11/09/2005 11:15 AM CDT Pulse - - Temperature 36.6 C (97.8 F) 11/09/2005 11:15 AM CDT Respiratory Rate - - Oxygen Saturation - - Inhaled Oxygen Concentration - - Weight 90.7 kg (200 lb) 11/09/2005 11:15 AM CDT Height - - Body Mass Index - - documented in this encounter Plan of Treatment Upcoming Encounters Date Type Department Care Team (Late st Contact Info) Description 06/02/2025 11:40 AM JIGMAKER Office Visit [facility] Primary Care [address] [place] [address] Mikhail Fink MD [address] [place] [address] [address] [place] [address] documented as of this encounter Visit Diagnoses Not on filedocumented in this encounter Care Teams Patient Registration Representative Relationship Specialty Start Date End Date Mikhail Fink MD PCP - General 11/19/07 documented as of this encounter
--- OUTSIDE RECORDS SUMMARY | 2024-12-21 13:01 | XMS_ITS | Encounter Summary ---
Author Organization [facility] Address [address] [place] [address] Care Team Providers Care Dairy Technician Name Role Phone Mikhail Fink MD Primary Care Provider [phone] Encounter Details Date Type Department Care Team (Late st Contact Info) Description 10/15/2004 Outpatient Historical [facility] Internal Medicine [address] [address] Mikhail Fink MD [address] [place] [address] Social History Tobacco Use Types Packs/Day Years Used Date Smoking Tobacco: Never Assessed Sex and Gender Information Value Date Recorded Sex Assigned at Not on file Legal Sex Male 3:10 AM CUT PLUG PACKER Gender Identity Not on file Sexual Orientation Not on file documented as of this encounter Last Filed Vital Signs Vital Sign Reading Time Taken Comments Blood Pressure 128/80 10/15/2004 10:15 AM CDT Pulse - - Temperature - - Respiratory Rate - - Oxygen Saturation - - Inhaled Oxygen Concentration - - Weight 92.5 kg (204 lb) 10/15/2004 10:15 AM CDT Height - - Body Mass Index - - documented in this encounter Plan of Treatment Upcoming Encounters Date Type Department Care Team (Late st Contact Info) Description 06/02/2025 11:40 AM CUT PLUG PACKER Office Visit [facility] Primary Care [address] [place] [address] Mikhail Fink MD [address] [facility] [address] [place] [address] documented as of this encounter Visit Diagnoses Not on filedocumented in this encounter Care Teams Dairy Technician Relationship Specialty Start Date End Date Mikhail Fink MD PCP - General 11/19/07 documented as of this encounter
--- OUTSIDE RECORDS SUMMARY | 2024-12-21 13:01 | XMS_ITS | Encounter Summary ---
Author Organization [facility] Address [address] [place] [address] Care Team Providers Care Automotive Center Manager Name Role Phone Mikhail Fink MD Primary Care Provider Encounter Details Date Type Department Care Team (Late Contact Info) Description 08/08/2006 Orders Only [facility] Internal Medicine [address] [address] Mikhail Fink MD [address] [place] [address] [address] [place] [address] Social History Tobacco Use Types Packs/Day Years Used Date Smoking Tobacco: Never Assessed Sex and Gender Information Value Date Recorded Sex Assigned at Not on file Legal Sex Male 3:10 AM ORDER CHECKER Gender Identity Not on file Sexual Orientation Not on file documented as of this encounter Progress Notes * Mikhail Fink MD - 11/02/2007 9:39 PM CDT WHO TOOK THE CALL: Mikhail Fink M TIME:02:58 pm documented in this encounter Plan of Treatment Upcoming Encounters Date Type Department Care Team (Late st Contact Info) Description 06/02/2025 11:40 AM ORDER CHECKER Office Visit [facility] Primary Care [address] [place] [address] Mikhail Fink MD [address] [place] [address] [place] [address] documented as of this encounter Visit Diagnoses Not on filedocumented in this encounter Care Teams Automotive Center Manager Relationship Specialty Start Date End Date Mikhail Fink MD PCP - General 11/19/07 documented as of this encounter
--- OUTSIDE RECORDS SUMMARY | 2024-12-21 13:01 | XMS_ITS | Encounter Summary ---
Author Organization [facility] Address [address] [place] [address] Care Team Providers Care Dipper And Baker Name Role Phone Mikhail Fink MD Primary Care Provider [phone] Encounter Details Date Type Department Care Team (Late st Contact Info) Description 04/19/2007 Outpatient Historical [facility] Internal Medicine [address] [address] Mikhail Fink MD [address] [place] [address] Social History Tobacco Use Types Packs/Day Years Used Date Smoking Tobacco: Never Assessed Sex and Gender Information Value Date Recorded Sex Assigned at Not on file Legal Sex Male 3:10 AM WATER TREATMENT TECHNICIAN Gender Identity Not on file Sexual Orientation Not on file documented as of this encounter Last Filed Vital Signs Vital Sign Reading Time Taken Comments Blood Pressure 120/80 04/19/2007 10:15 AM WATER TREATMENT TECHNICIAN Pulse - - Temperature - - Respiratory Rate - - Oxygen Saturation - - Inhaled Oxygen Concentration - - Weight 94.3 kg (208 lb) 04/19/2007 10:15 AM WATER TREATMENT TECHNICIAN Height - - Body Mass Index - - documented in this encounter Plan of Treatment Upcoming Encounters Date Type Department Care Team (Late st Contact Info) Description 06/02/2025 11:40 AM WATER TREATMENT TECHNICIAN Office Visit [facility] Primary Care [address] [place] [address] Mikhail Fink MD [address] [place] [address] [address] [place] [address] documented as of this encounter Visit Diagnoses Not on filedocumented in this encounter Care Teams Dipper And Baker Relationship Specialty Start Date End Date Mikhail Fink MD PCP - General 11/19/07 documented as of this encounter
--- OUTSIDE RECORDS SUMMARY | 2024-12-21 13:01 | XMS_ITS | Encounter Summary ---
Author Organization [facility] Address [address] [place] [address] Care Team Providers Care Medical Practice Administrator Name Role Phone Mikhail Fink MD Primary Care Provider [phone] Encounter Details Date Type Department Care Team (Late st Contact Info) Description 04/30/2007 Orders Only [facility] Internal Medicine [address] [address] Mikhail Fink MD [address] [place] [address] Social History Tobacco Use Types Packs/Day Years Used Date Smoking Tobacco: Never Assessed Sex and Gender Information Value Date Recorded Sex Assigned at Not on file Legal Sex Male 3:10 AM CREDIT REPORTING CLERK Gender Identity Not on file Sexual Orientation Not on file documented as of this encounter Progress Notes * Mikhail Fink MD - 10/25/2007 7:13 PM CDT TIME:10:38 am PATIENT`S HOME PHONE: PATIENT`S WORK PHONE: PATIENT`S INSURANCE: [employer] WHO TOOK THE CALL: Shaylee Wylie B GENERAL INFORMATION [employer]TER[employer] PHONE NUMBER: [phone] WHO CALLED: Patient`s spouse called. [facility] NUMBER: [phone] PROBLEMS: pt began experiencing nausea and vomiting shortly after beginning generic septra ds 800-160 mg. pt has stopped taking medication and feels better. elbow looks much better. color returning. FEVER: Date of onset is uncertain. NAUSEA: The date of onset is uncertain. VOMITING: The date of onset is uncertain. SECTION 1: REQUESTED ACTION avery 04/30/07 at 10:41 am: MEDICATION REQUEST: Patient requests a change in current medication. DOCTOR`S RESPONSE: madelyn 04/30/07 at 10:44 am MEDICATIONS: Call in to Pharmacy DOXYCYCLINE HYCLATE ORAL TABLET 100 MG, 1 Two Times A Day, 14 Dispensed, status: NEW PRESCRIPTION, 04/30/2007. FINAL ACTION: avery 04/30/07 at 11:06 am Spoke with patient 04/30/07 at 11:06 am. spoke with spouse [facility]. Called pharmacy at 04/30/07 at 11:07 am. Electronically Signed by: Shaylee Wylie on Monday, April 30, 2007 documented in this encounter Plan of Treatment Upcoming Encounters Date Type Department Care Team (Late st Contact Info) Description 06/02/2025 11:40 AM CREDIT REPORTING CLERK Office Visit [facility] Primary Care [address] [place] [address] Mikhail Fink MD [address] [place] [address] [address] [place] [address] documented as of this encounter Visit Diagnoses Not on filedocumented in this encounter Care Teams Medical Practice Administrator Relationship Specialty Start Date End Date Mikhail Fink MD PCP - General 11/19/07 documented as of this encounter
--- OUTSIDE RECORDS SUMMARY | 2024-12-21 13:01 | XMS_ITS | Clinical Summary ---
Author Organization [facility] Address [address] [place] [address] Care Team Providers Care Top Lift Scourer Name Role Phone Mikhail Fink MD Primary Care Provider [phone] Allergies Active Allergy Reactions Criticality Noted Date Comments Cephalexin Rash Low 01/27/2009 Sulfa (Sulfonamide Antibiotics) Nausea and Vomiting,Fever Low 01/27/2009 Medications OMEGA-3 FATTY ACIDS (OMEGA 3 ORAL) Take 1 Capsule by mouth daily. Active mupirocin (BACTROBAN) 2 % Ointment Apply to affected area. 11/03/2018 Active multivitamin (DAILY-DIEGO) tablet Take 1 Tablet by mouth daily. Active CHOLECALCIFEROL , VITAMIN D3, ORAL Take by mouth daily. Active clotrimazole-be tamethasone (LOTRISONE) 1-0.05 % Cream Apply to affected area 2 times daily. Leg bid 45 Gram 2 04/13/2022 Active lactulose (ENULOSE) 10 gram/15 mL 10 gram/15 mL solution Take 30 mL by mouth 3 times daily. 600 mL 2 10/31/2023 Active tamsulosin (Flomax) 0.4 mg capsule Take 1 Capsule (0.4 mg) by mouth daily. 90 Capsule 3 11/10/2023 Active lisinopriL (PRINIVIL) 5 mg tablet take 1 tablet twice a day 200 Tablet 3 02/02/2024 Active atorvastatin (LIPITOR) 20 mg tablet TAKE 1 TABLET DAILY WITH SUPPER 100 Tablet 3 02/02/2024 Active levothyroxine 88 mcg tablet take 1 tablet daily 100 Tablet 3 03/15/2024 Active aspirin (ECOTRIN EC) 81 mg Tablet, Delayed Release (E.C.) Take 2 Tablets (162 mg) by mouth daily. 180 Tablet 2 04/29/2024 Active omeprazole (PriLOSEC) 20 mg Capsule, Delayed Release(E.C.) Take 1 Capsule (20 mg) by mouth daily. 90 Capsule 1 07/08/2024 Active amLODIPine (NORVASC) 5 mg tablet Take 1 Tablet (5 mg) by mouth daily. 100 Tablet 3 07/10/2024 Active metFORMIN (GLUCOPHAGE XR) 500 mg Extended Release 24 hour tablet Take 2 Tablets (1,000 mg) by mouth daily with breakfast. 200 Tablet 3 11/11/2024 Active methylPREDNISol one (MEDROL DOSPACK) 4 mg Tablets, Dose Pack As directed 21 Tablet 11/25/2024 Active triamcinolone acetonide (KENALOG) 0.1 % Cream Apply to affected area 2 times daily. 80 Gram 1 11/25/2024 Active predniSONE (DELTASONE) 10 mg tablet Take 1 Tablet (10 mg) by mouth daily. 21 Tablet 12/02/2024 Active Active Problems Patient Care Coordination No te Formatting of this note migh t be different from the original. [id number] 10/24/23 Problem Noted Date Diagnosed Date Prediabetes 01/01/2020 Primary osteoarthritis of both feet 03/26/2018 Osteoarthritis 07/09/2004 Hypothyroidism 04/02/2004 Hyperlipidemia 11/25/2003 Esophageal reflux 11/25/2003 Resolved Problems Problem Noted Date Diagnosed Date Resolved Date Abnormal glucose 12/30/2011 07/01/2020 Cellulitis and abscess of unspecified site 04/20/2007 01/27/2009 Multiple and unspecified ope n wound of upper limb, without mention of complication 04/19/2007 Need for prophylactic vaccin ation with tetanus-diphtheria (Td) 03/30/2007 01/27/2009 Acute sinusitis, unspecified 09/29/2006 01/27/2009 Nausea alone 07/18/2006 01/27/2009 Dizziness and giddiness 07/18/200601/10 Generalized osteoarthrosis, unspecified site 6 07/01/2011 Impacted cerumen 12/23/2005 01/27/2009 Nonspecific abnormal electro cardiogram (ECG) (EKG) 12/23/2005 01/27/2009 Infectious colitis, enteriti s, and gastroenteritis 11/09/2005 01/27/2009 Screening for malignant neop lasm of the rectum 08/19/2005 01/27/2009 Special screening for malign ant neoplasm of prostate 04/15/2005 01/27/2009 Rash and other nonspecific skin eruption 10/15/2004 01/27/2009 Encounters Date Type Department Care Team Description 12/18/2024 Abstract [facility] [address] [place] [address] Mikhail Fink MD 11/11/2024 10:40 AM CDT Office Visit [facility] [address] [place] [address] Mikhail Fink MD Essential hypertension (Primary Dx); DM type 2, goal HbA1c < 7% ([facility]); Other specified hypothyroidism; Other hyperlipidemia 10/31/2024 External Device Data [facility] ABSTRACTION Provider, Abstract 10/30/2024 External Device Data [facility] ABSTRACTION Provider, Abstract 10/29/2024 External Device Data [facility] ABSTRACTION Provider, Abstract 09/24/2024 External Device Data [facility] ABSTRACTION Provider, Abstract from Last 3 Months Immunizations Immunization Administration Dates Next Due (ADACEL/BOOSTRIX)(10 YR UP) TDAP VACCINE, 0.5ML, IM 09/21/2017,03/30/2007 (AREXVY)(60 YR UP) RSV, CHARBEL MBINANT, PROTEIN SUBUNIT RSVPREF, ADJUVANT RECONSTITUTED, 0.5 ML, PF 10/24/2023 (PREVNAR 20)(6 WKS UP) PNEUM OCOCCAL CONJUGATE VACCINE 20-VALENT (PCV20), POLYSACCHARIDE [id number] CONJUGATE, ADJUVANT 0.5 ML (PF) IM 04/18/2023 (SHINGRIX)(50 YRS UP) ZOSTER VACCINE RECOMBINANT, 0.5 ML, IM 01/10/2019,10/17/2018 INFLUENZA VACCINE HIGH DOSE QUADRIVALENT 65 YR UP PF IM 04/13/2022,03/24/2021 INFLUENZA VACCINE HIGH DOSE TRIVALENT SPLIT VIRUS, (65 YR UP), 0.5ML (PF), IM 04/29/2024 Influenza Seasonal Unspecifi ed Formulation IM 03/23/2018,04/11/2017,03/12/2014,03/21,03/12/2011 Influenza Vaccine High Dose 65+ Yrs IM 9 Influenza Vaccine Tri Split 4+ Im 2017,04/11/2017,03/12/2014,03/21,03/12/2011 PREVNAR (PCV13) pneumococcal 13-valent conjugate Vaccine 01/10/2019 Pneumococcal 13-nisha Conj Vac c Patient Supplied 01/10/2019 Zoster Vaccine Live SQ 05/22/2014 Family History Medical History Relation Name Comments Heart Disease Father Gama Cunningham Hypertension Father Gama Cunningham High Cholesterol Mother Shira Cunningham Hypertension Mother Shira Cunningham Asthma Son Salinas Once in awhile Colon Cancer Neg Hx Relation Name Status Comments Father Gama Cunningham Mother Shira Cunningham Son [place]inas Social History Tobacco Use Types Packs/Day Years Used Date Smoking Tobacco: Never Passive Smoke Exposure: Never Smokeless Tobacco: Never Tobacco Cessation:Counseling Given: No Alcohol Use Standard Drinks/Week Comments Never 0 (1 standard drink = 0.6 oz [...] on file Legal Sex 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 Gender Identity Not on file Sexual Orientation Not on file Last Filed Vital Signs Vital Sign Reading Time Taken Comments Blood Pressure 124/62 11/11/2024 9:59 AM CDT Pulse 70 11/11/2024 9:59 AM CDT Temperature 36.1 C (96.9 F) 04/18/2023 10:39 AM SENIOR STORAGE ENGINEER Respiratory Rate 16 11/10/2023 1:41 PM CDT Oxygen Saturation 99% 11/11/2024 9:59 AM CDT Inhaled Oxygen Concentration - - Weight 101.4 kg (223 lb 9.6 oz) 11/11/2024 9:59 AM CDT Height 182.9 cm (6') 11/11/2024 9:59 AM CDT Body Mass Index 30.33 11/11/2024 9:59 AM CDT Plan of Treatment Upcoming Encounters Date Type Department Care Team (Late st Contact Info) Description 06/02/2025 11:40 AM SENIOR STORAGE ENGINEER Office Visit [facility] [address] [place] [address] Mikhail Fink MD [address] [place] [address] [address] [place] [address] Health Maintenance Due Date Last Done Comments FIT/ DNA Q 3 YEARS (AUTO ORDER) 12/25/1971 FIT-DNA Q 3 years 1998 Flex Sig/CT Colonography Q 5 years 1998 FIT/FOBT Q 1 YEAR (AUTO ORDER) 08/19/2006 08/19/2005 FIT/FOBT Q 1 year 08/19/2006 08/19/2005 DIABETES ANNUAL RETINAL EXAM 02/21/2024 02/20/2023 Medicare Advantage (ID) Preventative Visit/Annual Wellness Visit 06/12/2024 10/24/2023, 10/13/2022, 10/11/2021, Additional history exists DIABETES ANNUAL FOOT EXAM 10/23/20242023, 04/18/2023, 04/13/2022, Additional history exists INFLUENZA VACCINE (#1) 2025 , 04/13/2022, 03/24/2021, Additional history exists DIABETES HBA1C Q 6 MONTHS 05/01/20252024, 04/22/2024, 10/17/2023, Additional history exists DIABETES MICROALBUMIN ANNUAL SCREEN 10/29/2025 10/29/2024, 10/17/2023, 10/06/2022 DIABETES: A1C (Auto Order) 10/29/202510/29, 04/22/2024, 10/17/2023, Additional history exists LDL CHOLESTEROL ANNUAL 10/29/2025 , 04/22/2024, 10/17/2023, Additional history exists DTAP/TDAP/TD VACCINES (3 - T d or Tdap) 09/22/2027 09/21/2017, 03/30/2007 FLEX SIG/CT COLONOGRAPHY Q 5 YEARS (AUTO ORDER) 07/24/2029 07/24/2024, 07/24/2024 COLORECTAL CANCER SCREENING (AUTO ORDER) 07/24/2034 07/24/2024, 07/24/2024, 07/24/2024, Additional history exists COLORECTAL SCREENING 07/24/2034 07/24/2024, 07/24/2024, 07/24/2024, Additional history exists Colorectal Cancer Screening (AUTO ORDER) 07/24/2034 Colorectal Cancer Screening 07/24/2034 ZOSTER VACCINE Completed 01/10/2019, 0501/2019, 05/22/2014 PNEUMOCOCCAL VACCINE 50+ YEARS Completed 1 06/18/2022, 01/10/2019, 01/10/2019 RSV VACCINE (60+ or ) Completed 10/24/2023 [facility] eGFR (Auto Order) Completed 10/29/2024 , 04/22/2024, 10/17/2023, Additional history exists [facility] uACR (Auto Order) Completed 10/29/2024 , 10/17/2023, 10/06/2022 Procedures Procedure Name Priority Date/Time Associated Diagnosis Comments MICROALBUMIN/CREATINI NE RATIO, RANDOM UR Routine 10/29/2024 8:10 AM CDT TSH Routine 10/29/2024 8:10 AM CDT Other specified hypothyroidism Other hyperlipidemia PSA Routine 10/29/2024 8:10 AM CDT Screening PSA (prostate specific antigen) LIPID PANEL Routine 10/29/2024 8:10 AM CDT Other hyperlipidemia HEMOGLOBIN A1C Routine 10/29/2024 8:10 AM CDT DM type 2, goal HbA1c < 7% ([facility]) COMPREHENSIVE METABOLIC PANEL Routine 10/29/2024 8:10 AM CDT Other hyperlipidemia CBC WITH DIFFERENTIAL Routine 10/29/2024 8:10 AM CDT Essential hypertension ENDOSCOPY, COLON, SCREENING Routine 07/24/2024 1:48 PM SENIOR STORAGE ENGINEER HM DIABETES EYE EXAM Routine 02/20/2023 12:22 PM CDT from Last 3 Months or Most Recently Relevant to Health Maintenance Results * MICROALBUMIN/CREATININE RATIO, RANDOM UR (10/29/2024 8:10 AM CDT) CREATININE, URINE 158 20 - 320 mg/dL [facility] ALBUMIN, URINE 0.4 See Note: mg/dL [facility] Comment: Reference Range: Reference Range Not established ALB/CREAT RATIO, URINE 3 <30 mg/g creat [facility] Comment: The ADA defines abnormalities in albumin excretion as follows: Albuminuria Category Result (mg/g creatinine) Normal to Mildly increased <30 Moderately increased 30-299 Severely increased > OR = 300 The ADA recommends that at least two of three specimens collected within a 3-6 month period be abnormal before considering a patient to be within a diagnostic category. FASTING:YES FASTING: YES Test Performed at: [facility] [address] [facility] [place] [address] Manjeet Forte MD 10/29/2024 8:10 AM CDT 10/29/2024 8:11 AM CDT us Mikhail Fink MD URINE ORDERABLES Final Result [facility] [phone] [facility] [address] [facility] [phone] * (ABNORMAL) CBC WITH DIFFERENTIAL (10/29/2024 8:10 AM CDT) WBC 5.0 3.8 - 10.8 Thousand/u L [facility] RBC 5.07 4.20 - 5.80 Million/uL [facility] HEMOGLOBIN 14.6 13.2 - 17.1 g/dL [facility] HEMATOCRIT 46.2 38.5 - 50.0 % [facility] MCV 91.1 80.0 - 100.0 fL [facility] MCH 28.8 27.0 - 33.0 pg [facility] MCHC 31.6(L) 32.0 - 36.0 g/dL [facility] Comment: For adults, a slight decrease in the calculated MCHC value (in the range of 30 to 32 g/dL) is most likely not clinically significant; however, it should be interpreted with caution in correlation with other red cell parameters and the patient's clinical condition. RDW 12.4 11.0 - 15.0 % [facility] PLATELETS 172 140 - 400 Thousand/u L [facility] MPV 9.8 7.5 - 12.5 fL [facility] NEUTROPHIL ABSOLUTE 3,025 1,500 - 7,800 cells/uL [facility] LYMPHOCYTE ABSOLUTE 1,210 850 - 3,900 cells/uL [facility] MONOCYTE ABSOLUTE 545 200 - 950 cells/uL [facility] EOSINOPHIL ABSOLUTE 170 15 - 500 cells/uL [facility] BASOPHILS ABSOLUTE 50 0 - 200 cells/uL [facility] NEUTROPHIL 60.5 % [facility] LYMPHOCYTES 24.2 % [facility] MONOCYTE 10.9 % [facility] EOSINOPHILS 3.4 % [facility] BASOPHILS 1.0 % [facility] Comment: Test Performed at: [facility] [address] [address] Manjeet Forte MD Blood 10/29/2024 8:10 AM CDT 10/29/2024 8:11 AM CDT Mikhail Fink MD HEMATOLOGY ORDERABLES Final R esult Performing Organization Address City/[facility]/ZIP Co de Phone Number [facility] [phone] [address] * TSH (10/29/2024 8:10 AM CDT) Pathologist [facility] TSH 1.41 0.40 - 4.50 mIU/L [facility] Comment: Test Performed at: [facility] [address] Manjeet Forte MD Blood 10/29/2024 8:10 AM CDT 10/29/2024 8:11 AM CDT Result [facility] Mikhail Fink MD CHEMISTRY ORDERABLES Final Re sult Performing Organization Address [facility] Co de Phone Number [facility] [phone] [address] * PSA (10/29/2024 8:10 AM CDT) Pathologist [facility] PSA 0.69 < OR = 4.00 ng/mL [facility] Comment: The total PSA value from this assay system is standardized against the WHO standard. The test result will be approximately 20% lower when compared to the equimolar-standardized total PSA (Dasha [place]). Comparison of serial PSA results should be interpreted with this fact in mind. This test was performed using the Siemens chemiluminescent method. Values obtained from different assay methods cannot be used interchangeably. PSA levels, regardless of value, should not be interpreted as absolute evidence of the presence or absence of disease. FASTING:YES FASTING: YES Test Performed at: [facility] [address] Manjeet Forte MD Blood 10/29/2024 8:10 AM CDT 10/29/2024 8:11 AM CDT Result [facility] Mikhail Fink MD CHEMISTRY ORDERABLES Final Re sult Performing Organization Address City/[facility]/ZIP [facility] Phone Number [facility] [phone] [facility] [address] [address] [address] * (ABNORMAL) HEMOGLOBIN A1C (10/29/2024 8:10 AM CDT) HEMOGLOBIN A1C 7.0(H) <5.7 % of total Hgb [facility] Comment: For someone without known diabetes, a hemoglobin A1c value of 6.5% or greater indicates that they may have diabetes and this should be confirmed with a follow-up test. For someone with known diabetes, a value <7% indicates that their diabetes is well controlled and a value greater than or equal to 7% indicates suboptimal control. A1c targets should be individualized based on duration of diabetes, age, comorbid conditions, and other considerations. Currently, no consensus exists regarding use of hemoglobin A1c for diagnosis of diabetes for children. ESTIMATED AVERAGE GLUCOSE (MG/DL) 154 mg/dL [facility] ESTIMATED AVERAGE GLUCOSE (MMOL/L) 8.5 mmol/L [facility] Comment: FASTING:YES FASTING: YES Test Performed at: [facility] [place] [address] [address] [address] Manjeet Forte Blood 10/29/2024 8:10 AM CDT 10/29/2024 8:11 AM CDT Mikhail Fink MD CHEMISTRY ORDERABLES Final Re sult Performing Organization Address City/[facility]/ZIP [facility] Phone Number [facility] [phone] [facility] [address] [address] [address] * LIPID PANEL (10/29/2024 8:10 AM CDT) CHOLESTEROL 127 <200 mg/dL [facility] HDL 42 > OR = 40 mg/dL [facility] TRIGLYCERIDE 71 <150 mg/dL [facility] LDL CALCULATED 70 mg/dL (calc) [facility] Comment: Reference range: <100 Desirable range <100 mg/dL for primary prevention; <70 mg/dL for patients with CHD or diabetic patients with > or = 2 CHD risk factors. LDL-C is now calculated using the Rosaura calculation, which is a validated novel method providing better accuracy than the Friedewald equation in the estimation of LDL-C. Valeriy HAMMOND et al. ERNESTO. 2013;310(19): 8627-9184 (http://education.StudyCloud/faq/ZJF190) CHOL/HDL RATIO 3.0 <5.0 (calc) [facility] NON-HDL CHOLESTEROL 85 <130 mg/dL (calc) [facility] Comment: For patients with diabetes plus 1 major ASCVD risk factor, treating to a non-HDL-C goal of <100 mg/dL (LDL-C of <70 mg/dL) is considered a therapeutic option. Test Performed at: [facility] [address] [place] [address] Manjeet Forte MD Blood 10/29/2024 8:10 AM CDT 10/29/2024 8:11 AM CDT us Mikhail Fink MD CHEMISTRY ORDERABLES Final Re sult [facility] [phone] [facility] [place] [address] * (ABNORMAL) COMPREHENSIVE METABOLIC PANEL (10/29/2024 8:10 AM CDT) GLUCOSE 148(H) 65 - 99 mg/dL [facility] Comment: Fasting reference interval For someone without known diabetes, a glucose value >125 mg/dL indicates that they may have diabetes and this should be confirmed with a follow-up test. BUN 15 7 - 25 mg/dL [facility] CREATININE 0.95 0.70 - 1.28 mg/dL [facility] GFR 86 > OR = 60 mL/min/1. 73m2 [facility] BUN/CREAT RATIO SEE NOTE: (calc) [facility] Comment: Not Reported: BUN and Creatinine are within reference range. SODIUM 138 135 - 146 mmol/L [facility] POTASSIUM 4.4 3.5 - 5.3 mmol/L [facility] CHLORIDE 104 98 - 110 mmol/L [facility] CO2 28 20 - 32 mmol/L [facility] CALCIUM 8.9 8.6 - 10.3 mg/dL [facility] TOTAL PROTEIN 6.3 6.1 - 8.1 g/dL [facility] ALBUMIN 4.3 3.6 - 5.1 g/dL [facility] GLOBULIN 2.0 1.9 - 3.7 g/dL (calc) [facility] ALBUMIN/GLOBULIN RATIO 2.2 1.0 - 2.5 (calc) [facility] BILIRUBIN TOTAL 1.3(H) 0.2 - 1.2 mg/dL [facility] ALKALINE PHOSPHATASE 82 35 - 144 U/L [facility] AST 20 10 - 35 U/L [facility] ALT 26 9 - 46 U/L [facility] Comment: FASTING:YES FASTING: YES Test Performed at: [facility] [address] [place] [address] Manjeet Forte MD Blood 10/29/2024 8:10 AM CDT 10/29/2024 8:11 AM CDT us Mikhail Fink MD CHEMISTRY ORDERABLES Final Re sult [facility] [phone] [facility] [address] [place] [address] * ENDOSCOPY, COLON, SCREENING (07/24/2024 1:48 PM SENIOR STORAGE ENGINEER) us Abstract Provider GI PROCEDURE ORDERABLES Edited Result - Final [facility] CLIA# [id number] [address] [facility] [address] [place] [id number] * DIABETES EYE EXAM (02/20/2023 12:22 PM CDT) us Abstract Provider HEALTH MAINTENANCE Edited Resu lt - Final [facility] CLIA# [id number] [facility] [address] [place] [address] from Last 3 Months or Most Recently Relevant to Health Maintenance Insurance [employer] PPO MCR Care Teams Top Lift Scourer Relationship Specialty Start Date End Date Mikhail Fink MD PCP - General 11/19/07
--- OUTSIDE RECORDS SUMMARY | 2024-12-21 13:01 | XMS_ITS | Encounter Summary ---
Author Organization [facility] Address [address] [place] [address] Care Team Providers Care Orthopedic Radiologic Technologist Name Role Phone Mikhail Fink MD Primary Care Provider [phone] Encounter Details Date Type Department Care Team (Late st Contact Info) Description 09/29/2006 Outpatient Historical [facility] Internal Medicine [address] [address] Mikhail Fink MD [address] [place] [address] Social History Tobacco Use Types Packs/Day Years Used Date Smoking Tobacco: Never Assessed Sex and Gender Information Value Date Recorded Sex Assigned at Not on file Legal Sex Male 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 TRAINER Gender Identity Not on file Sexual Orientation Not on file documented as of this encounter Last Filed Vital Signs Vital Sign Reading Time Taken Comments Blood Pressure 130/80 09/29/2006 9:15 AM CDT Pulse - - Temperature - - Respiratory Rate - - Oxygen Saturation - - Inhaled Oxygen Concentration - - Weight 92.5 kg (204 lb) 09/29/2006 9:15 AM CDT Height - - Body Mass Index - - documented in this encounter Plan of Treatment Upcoming Encounters Date Type Department Care Team (Late st Contact Info) Description 06/02/2025 11:40 AM ATHLETIC TRAINER Office Visit [facility] Primary Care [address] [place] [address] Mikhail Fink MD [address] [facility] [address] [place] [address] documented as of this encounter Visit Diagnoses Not on filedocumented in this encounter Care Teams Orthopedic Radiologic Technologist Relationship Specialty Start Date End Date Mikhail Fink MD PCP - General 11/19/07 documented as of this encounter
--- OUTSIDE RECORDS SUMMARY | 2024-12-21 13:01 | XMS_ITS | Encounter Summary ---
Author Organization [facility] Address [address] [place] [address] Care Team Providers Care Clerical Aide Teacher Name Role Phone Mikhail Fink MD Primary Care Provider [phone] Encounter Details Date Type Department Care Team (Late st Contact Info) Description 04/20/2007 Orders Only [facility] Internal Medicine [address] [address] Mikhail Fink MD [address] [place] [address] Social History Tobacco Use Types Packs/Day Years Used Date Smoking Tobacco: Never Assessed Sex and Gender Information Value Date Recorded Sex Assigned at Not on file Legal Sex Male 3:10 AM CEPHALOMETRIC ANALYST Gender Identity Not on file Sexual Orientation Not on file documented as of this encounter Progress Notes * Mikhail Fink MD - 10/25/2007 5:16 PM CDT TIME:11:33 am PATIENT`S HOME PHONE: PATIENT`S WORK PHONE: PATIENT`S INSURANCE: [employer] WHO TOOK THE CALL: Shaylee Wylie B GENERAL INFORMATION ALTERNATIVE PHONE NUMBER: WHO CALLED: Patient called. Patient reports no known allergies. PHARMACY NUMBER: PROBLEMS: left elbow and palm has red, itchy bumps. around open wound. pt did not use tape last night for wound care covering. do you need to see pt. was here yesterday SECTION 1: REQUESTED ACTION avery 04/20/07 at 11:40 am: MEDICATION REQUEST: Patient wants medication or an appointment. DOCTOR`S RESPONSE: madelyn 04/20/07 at 11:49 am ?? we can see today FINAL ACTION: devin 04/20/07 at 11:54 am Spoke with patient 04/20/07 at 12:09 pm. Booked appointment: for today Left message on patient`s recorder or with a family member 04/20/2007 at 11:54 am. Electronically Signed by: Emelyn Michael on Friday, April 20, 2007 * Mikhail Fink MD - 10/25/2007 5:15 PM CDT WEIGHT: 207lbs BLOOD PRESSURE: 130/80 Right Arm Sitting TEMPERATURE: 36.83??c Oral NURSE NAME: Roma Wills J CHIEF COMPLAINT Patient complains of rash. HISTORY: rash on wrist and redness on elbow inc itching, no tape or ointment on elbow recently doeshave abrasion --worse since yesterday PHYSICAL EXAMINATION: RESPIRATORY: Clear to auscultation and percussion. Normal respiratory effort. CARDIOVASCULAR: CARDIAC: Regular rhythm. No murmurs, rubs, or gallops. EDEMA/VARICOSITIES OF EXTREMITIES: No edema or varicosities. GASTROINTESTINAL: ABDOMEN: Soft, non-tender, without masses. Bowel sounds active. SKIN: LUE erythema, elbow, warm, no drainage, mild dermatitis on wrist ASSESSMENT/PLAN: 782.1-RASH wrist, suspect all rxn to polysporin? vs other, stop, ok use lotrisone 682.9-CELLULITIS/ABSCESS all vs infection?? cx taken, stop keflex start sulfa--cannot r/o MRSA MEDICATIONS: SEPTRA DS ORAL TABLET 800-160 MG, 1 Two Times A Day, 28 Dispensed, status: NEW PRESCRIPTION, 04/20/2007. MUPIROCIN EXTERNAL OINTMENT 2 %, DIRECTED, 10 Duration/Days Supply, status: NEW PRESCRIPTION, 04/20/2007. LAB ORDERS: Order number: [id number] Test Ordered: CULTURE, AEROBIC WOUND W/SMEAR 8992 HEALTH MAINTENANCE: LAST TD: 04/07/2007 Patient Education: The patient was allowed to ask questions to stated satisfaction, as well as the spouse. Risks, benefits, and possible side effects of medication(s) were reviewed with the patient. RETURN VISIT : Instructed to call if not improving.note to be off work Monday and Monday for possible Staph infection Electronically Signed by: Mikhail Fink MD on Friday, April 20, 2007 documented in this encounter Plan of Treatment Upcoming Encounters Date Type Department Care Team (Late st Contact Info) Description 06/02/2025 11:40 AM CEPHALOMETRIC ANALYST Office Visit [facility] Primary Care [address] [place] [address] Mikhail Fink MD [address] [place], [place] [phone] documented as of this encounter Visit Diagnoses Not on filedocumented in this encounter Care Teams Clerical Aide Teacher Relationship Specialty Start Date End Date Mikhail Fink MD PCP - General 11/19/07 documented as of this encounter
--- OUTSIDE RECORDS SUMMARY | 2024-12-21 13:01 | XMS_ITS | Encounter Summary ---
Author Organization [facility] Address [address] [place] [address] Care Team Providers Care Cook Larder Name Role Phone Mikhail Fink MD Primary Care Provider Encounter Details Date Type Department Care Team (Late st Contact Info) Description 08/17/2006 Outpatient Historical [facility] Internal Medicine [address] [address] Mikhail Fink MD [address] [place] [address] [address] [place] [address] Social History Tobacco Use Types Packs/Day Years Used Date Smoking Tobacco: Never Assessed Sex and Gender Information Value Date Recorded Sex Assigned at Not on file Legal Sex Male 3:10 AM CAR BODY INSPECTOR Gender Identity Not on file Sexual Orientation Not on file documented as of this encounter Plan of Treatment Upcoming Encounters Date Type Department Care Team (Late st Contact Info) Description 06/02/2025 11:40 AM CAR BODY INSPECTOR Office Visit [facility] Primary Care [address] [place] [address] Mikhail Fink MD [address] [place] [address] [address] [place] [address] documented as of this encounter Visit Diagnoses Not on filedocumented in this encounter Care Teams Cook Larder Relationship Specialty Start Date End Date Mikhail Fink MD PCP - General 11/19/07 documented as of this encounter
--- OUTSIDE RECORDS SUMMARY | 2024-12-21 13:01 | XMS_ITS | Encounter Summary ---
Author Organization [facility] Address [address] [place] [address] Care Team Providers Care Skull Grinder Name Role Phone Mikhail Fink MD Primary Care Provider [phone] Encounter Details Date Type Department Care Team (Late st Contact Info) Description 07/18/2006 Outpatient Historical [facility] Internal Medicine [address] [address] Mikhail Fink MD [address] [place] [address] [address] [place] [address] Social History Tobacco Use Types Packs/Day Years Used Date Smoking Tobacco: Never Assessed Sex and Gender Information Value Date Recorded Sex Assigned at Not on file Legal Sex Male 3:10 AM MECHANICAL ENERGY ENGINEER Gender Identity Not on file Sexual Orientation Not on file documented as of this encounter Plan of Treatment Upcoming Encounters Date Type Department Care Team (Late st Contact Info) Description 06/02/2025 11:40 AM MECHANICAL ENERGY ENGINEER Office Visit [facility] Primary Care [address] [place] [address] Mikhail Fink MD [address] [place] [address] [address] [place] [address] documented as of this encounter Visit Diagnoses Not on filedocumented in this encounter Care Teams Skull Grinder Relationship Specialty Start Date End Date Mikhail Fink MD PCP - General 11/19/07 documented as of this encounter
--- OUTSIDE RECORDS SUMMARY | 2024-12-21 13:01 | XMS_ITS | Encounter Summary ---
Author Organization [facility] Address [address] [place] [address] Care Team Providers Care Packing Room Inspector Name Role Phone Mikhail Fink MD Primary Care Provider Encounter Details Date Type Department Care Team (Late st Contact Info) Description 04/19/2007 Orders Only [facility] Internal Medicine [address] [address] Mikhail Fink MD [address] [place] [address] Social History Tobacco Use Types Packs/Day Years Used Date Smoking Tobacco: Never Assessed Sex and Gender Information Value Date Recorded Sex Assigned at Not on file Legal Sex Male 3:10 AM PAPER BOX CUTTER Gender Identity Not on file Sexual Orientation Not on file documented as of this encounter Progress Notes * Mikhail Fink MD - 10/25/2007 5:28 PM CDT WEIGHT: 208lbs BLOOD PRESSURE: 120/80 Right Arm Sitting NURSE NAME: Corrie Emanuel R TOBACCO USE Patient does not currently use tobacco. CHIEF COMPLAINT Patient here for ER follow up. needs sutures removed. HISTORY: occ vertigo , nausea, zofran helped, fall from ladder, head injury sutures, wrist finger injury PHYSICAL EXAMINATION: RESPIRATORY: Clear to auscultation and percussion. Normal respiratory effort. CARDIOVASCULAR: CARDIAC: Regular rhythm. No murmurs, rubs, or gallops. EDEMA/VARICOSITIES OF EXTREMITIES: No edema or varicosities. MUSCULOSKELETAL EXAM: right arm in cast SKIN: abrasion hand--healing no infection, sutures forehead clean OFFICE PROCEDURES: SUTURE REPAIR/REMOVAL The incision is well sealed without significant erythema, drainage or edema. Sutures are removed without difficulty. Wound edges do not separate with traction. Instructions on care of the area are given. ASSESSMENT/PLAN: 715.00-OSTEOARTHROSIS AND ALLIED DISORDERS fu ortho discussed 780.4-VERTIGO/DIZZINESS ok med MEDICATIONS: ZOFRAN ODT ORAL TABLET DISPERSIBLE 4 MG, 1 Every Six Hours, As Needed, 10 Dispensed, status: NEW PRESCRIPTION, 04/19/2007. 884.0-LACERATION (OPEN WOUND) ARM dressed, cont local wound care sutures removed forehead as above RETURN VISIT : Instructed to call if not improving.light duty note , no work with right arm until cast removed Electronically Signed by: Mikhail Fink MD on April documented in this encounter Plan of Treatment Upcoming Encounters Date Type Department Care Team (Late st Contact Info) Description 06/02/2025 11:40 AM PAPER BOX CUTTER Office Visit [facility] Primary Care [address] [address] Mikhail Fink MD [address] [place] [address] documented as of this encounter Visit Diagnoses Not on filedocumented in this encounter Care Teams Packing Room Inspector Relationship Specialty Start Date End Date Mikhail Fink MD PCP - General 11/19/07 documented as of this encounter
--- OUTSIDE RECORDS SUMMARY | 2024-12-21 13:01 | XMS_ITS | Encounter Summary ---
Author Organization [facility] Address [address] [place] [address] Care Team Providers Care Assistant Boys Track Coach Name Role Phone Mikhail Fink MD Primary Care Provider [phone] Encounter Details Date Type Department Care Team (Late st Contact Info) Description 08/19/2005 Outpatient Historical [facility] Internal Medicine [address] [address] Mikhail Fink MD [address] [place] [address] [address] [place] [address] Social History Tobacco Use Types Packs/Day Years Used Date Smoking Tobacco: Never Assessed Sex and Gender Information Value Date Recorded Sex Assigned at Not on file Legal Sex Male 3:10 AM MULTIMEDIA EDITOR Gender Identity Not on file Sexual Orientation Not on file documented as of this encounter Plan of Treatment Upcoming Encounters Date Type Department Care Team (Late st Contact Info) Description 06/02/2025 11:40 AM MULTIMEDIA EDITOR Office Visit [facility] Primary Care [address] [place] [address] Mikhail Fink MD [address] [place] [address] [address] [place] [address] documented as of this encounter Visit Diagnoses Not on filedocumented in this encounter Care Teams Assistant Boys Track Coach Relationship Specialty Start Date End Date Mikhail Fink MD PCP - General 11/19/07 documented as of this encounter
--- OUTSIDE RECORDS SUMMARY | 2024-12-21 13:01 | XMS_ITS | Encounter Summary ---
Author Organization [facility] Address [address] [place] [address] Care Team Providers Care Welding Inspector Name Role Phone Mikhail Fink MD Primary Care Provider Encounter Details Date Type Department Care Team (Late st Contact Info) Description 11/25/2003 Outpatient Historical [facility] Internal Medicine [address] [address] Mikhail Fink MD [address] [place] [address] Social History Tobacco Use Types Packs/Day Years Used Date Smoking Tobacco: Never Assessed Sex and Gender Information Value Date Recorded Sex Assigned at Not on file Legal Sex Male 3:10 AM ADJUDICATION SPECIALIST Gender Identity Not on file Sexual Orientation Not on file documented as of this encounter Last Filed Vital Signs Vital Sign Reading Time Taken Comments Blood Pressure 120/70 11/25/2003 11:15 AM CDT Pulse - - Temperature - - Respiratory Rate - - Oxygen Saturation - - Inhaled Oxygen Concentration - - Weight 89.8 kg (198 lb) 11/25/2003 11:15 AM CDT Height - - Body Mass Index - - documented in this encounter Plan of Treatment Upcoming Encounters Date Type Department Care Team (Late st Contact Info) Description 06/02/2025 11:40 AM ADJUDICATION SPECIALIST Office Visit [facility] Primary Care [address] [place] [address] Mikhail Fink MD [address] [facility] [address] [place] [address] documented as of this encounter Visit Diagnoses Not on filedocumented in this encounter Care Teams Welding Inspector Relationship Specialty Start Date End Date Mikhail Fink MD PCP - General 11/19/07 documented as of this encounter
--- OUTSIDE RECORDS SUMMARY | 2024-12-21 13:01 | XMS_ITS | Encounter Summary ---
Author Organization [facility] Address [address] [place] [address] Care Team Providers Care Pack Mule Worker Name Role Phone Mikhail Fink MD Primary Care Provider [phone] Encounter Details Date Type Department Care Team (Late st Contact Info) Description 07/22/2005 Orders Only [facility] Internal Medicine [address] [address] Mikhail Fink MD [address] [place] [address] Social History Tobacco Use Types Packs/Day Years Used Date Smoking Tobacco: Never Assessed Sex and Gender Information Value Date Recorded Sex Assigned at Not on file Legal Sex Male 3:10 AM PHYSICAL THERAPY RESIDENT Gender Identity Not on file Sexual Orientation Not on file documented as of this encounter Progress Notes * Mikhail Fink MD - 03/20/2008 2:35 PM CDT WEIGHT: 209lbs BLOOD PRESSURE: 130/80 Right Arm Sitting NURSE NAME: Corrie Emanuel R CHIEF COMPLAINT Complains of left knee pain. HISTORY: knee pain, ongoing no injury HISTORY: 272.4-HYPERLIPIDEMIA The patient is tolerating the medications. PHYSICAL EXAMINATION: NECK/THYROID: Trachea midline. No thyroid enlargement, tenderness, or mass. No supraclavicular or cervical adenopathy. RESPIRATORY: Clear to auscultation and percussion. Normal respiratory effort. CARDIOVASCULAR: CARDIAC: Regular rhythm. No murmurs, rubs, or gallops. EDEMA/VARICOSITIES OF EXTREMITIES: No edema or varicosities. MUSCULOSKELETAL EXAM: ant tenderness ASSESSMENT/PLAN: 272.4-HYPERLIPIDEMIA cont med 715.90-OSTEOARTHROSIS UNSPECIFIED MEDICATIONS: MOBIC ORAL TABLET 15 MG, 1 Every Day, 20 Dispensed, status: NEW PRESCRIPTION, 07/22/2005. LAB ORDERS: Order number: [id number] Test Ordered: XRAY KNEE left,StA RETURN VISIT : The patient has a previous appointment. Electronically Signed by: Mikhail Fink MD on Wednesday, July 27, 2005 documented in this encounter Plan of Treatment Upcoming Encounters Date Type Department Care Team (Late st Contact Info) Description 06/02/2025 11:40 AM PHYSICAL THERAPY RESIDENT Office Visit [facility] [place] [address] Mikhail Fink MD [address] [place], [place] [phone] documented as of this encounter Visit Diagnoses Not on filedocumented in this encounter Care Teams Pack Mule Worker Relationship Specialty Start Date End Date Mikhail Fink MD PCP - General 11/19/07 documented as of this encounter
--- OUTSIDE RECORDS SUMMARY | 2024-12-21 13:01 | XMS_ITS | Encounter Summary ---
Author Organization [facility] Address [address] [place] [address] Care Team Providers Care Forest Fire Officer Name Role Phone Mikhail Fink MD Primary Care Provider [phone] Encounter Details Date Type Department Care Team (Late st Contact Info) Description 04/15/2005 Outpatient Historical [facility] Internal Medicine [address] [address] Mikhail Fink MD [address] [place] [address] Social History Tobacco Use Types Packs/Day Years Used Date Smoking Tobacco: Never Assessed Sex and Gender Information Value Date Recorded Sex Assigned at Not on file Legal Sex Male 3:10 AM DOWEL MACHINE OPERATOR Gender Identity Not on file Sexual Orientation Not on file documented as of this encounter Last Filed Vital Signs Vital Sign Reading Time Taken Comments Blood Pressure 130/80 04/15/2005 10:15 AM DOWEL MACHINE OPERATOR Pulse - - Temperature - - Respiratory Rate - - Oxygen Saturation - - Inhaled Oxygen Concentration - - Weight 96.6 kg (213 lb) 04/15/2005 10:15 AM DOWEL MACHINE OPERATOR Height - - Body Mass Index - - documented in this encounter Plan of Treatment Upcoming Encounters Date Type Department Care Team (Late st Contact Info) Description 06/02/2025 11:40 AM DOWEL MACHINE OPERATOR Office Visit [facility] Primary Care [address] [place] [address] Mikhail Fink MD [address] [place] [address] [address] [place] [address] documented as of this encounter Visit Diagnoses Not on filedocumented in this encounter Care Teams Forest Fire Officer Relationship Specialty Start Date End Date Mikhail Fink MD PCP - General 11/19/07 documented as of this encounter
--- OUTSIDE RECORDS SUMMARY | 2024-12-21 13:01 | XMS_ITS | Encounter Summary ---
Author Organization [facility] Address [address] [place] [address] Care Team Providers Care Utility Worker Name Role Phone Mikhail Fink MD Primary Care Provider Encounter Details Date Type Department Care Team (Latest Contact Info) Description 04/20/2007 Outpatient Historical [facility] Internal Medicine [address] [address] Mikhail Fink MD [address] [place] [address] [address] [place] [address] Cellulitis and Abscess of Unspecified Site (Primary Dx) Social History Tobacco Use Types Packs/Day Years Used Date Smoking Tobacco: Never Assessed Sex and Gender Information Value Date Recorded Sex Assigned at Not on file Legal Sex Male 3:10 AM ENERGY TRADER Gender Identity Not on file Sexual Orientation Not on file documented as of this encounter Plan of Treatment Upcoming Encounters Date Type Department Care Team (Late st Contact Info) Description 06/02/2025 11:40 AM ENERGY TRADER Office Visit [facility] Primary Care [address] [place] [address] Mikhail Fink MD [address] [place] [address] [address] [place] [address] documented as of this encounter Visit Diagnoses Diagnosis Cellulitis and abscess of unspecified site- Primary documented in this encounter Care Teams Utility Worker Relationship Specialty Start Date End Date Mikhail Fink MD PCP - General 11/19/07 documented as of this encounter
--- OUTSIDE RECORDS SUMMARY | 2024-12-21 13:01 | XMS_ITS | Encounter Summary ---
Author Organization [facility] Address [address] [place] [address] Care Team Providers Care Family Day Care Worker Name Role Phone Mikhail Fink MD Primary Care Provider [phone] Encounter Details Date Type Department Care Team (Late st Contact Info) Description 03/30/2007 Outpatient Historical [facility] Internal Medicine [address] [address] Mikhail Fink MD [address] [place] [address] [address] [place] [address] Social History Tobacco Use Types Packs/Day Years Used Date Smoking Tobacco: Never Assessed Sex and Gender Information Value Date Recorded Sex Assigned at Not on file Legal Sex Male 3:10 AM ELECTRONIC SEMICONDUCTOR PROCESSOR Gender Identity Not on file Sexual Orientation Not on file documented as of this encounter Plan of Treatment Upcoming Encounters Date Type Department Care Team (Late Contact Info) Description 06/02/2025 11:40 AM ELECTRONIC SEMICONDUCTOR PROCESSOR Office Visit [facility] Primary Care [address] [place] [address] Mikhail Fink MD [address] [place] [address] [address] [place] [address] documented as of this encounter Visit Diagnoses Not on filedocumented in this encounter Care Teams Family Day Care Worker Relationship Specialty Start Date End Date Mikhail Fink MD PCP - General 11/19/07 documented as of this encounter
--- OUTSIDE RECORDS SUMMARY | 2024-12-21 13:01 | XMS_ITS | Encounter Summary ---
Author Organization [facility] Address [address] [place] [address] Care Team Providers Care Aerospace Engineer Officer Armament Name Role Phone Mikhail Fink MD Primary Care Provider [phone] Encounter Details Date Type Department Care Team (Late st Contact Info) Description 11/25/2005 Outpatient Historical [facility] Internal Medicine [address] [address] Mikhail Fink MD [address] [place] [address] Social History Tobacco Use Types Packs/Day Years Used Date Smoking Tobacco: Never Assessed Sex and Gender Information Value Date Recorded Sex Assigned at Not on file Legal Sex Male 3:10 AM TECHNICAL SUPPORT TECHNICIAN Gender Identity Not on file Sexual Orientation Not on file documented as of this encounter Last Filed Vital Signs Vital Sign Reading Time Taken Comments Blood Pressure 130/80 11/25/2005 9:30 AM CDT Pulse - - Temperature - - Respiratory Rate - - Oxygen Saturation - - Inhaled Oxygen Concentration - - Weight 91.2 kg (201 lb) 11/25/2005 9:30 AM CDT Height - - Body Mass Index - - documented in this encounter Plan of Treatment Upcoming Encounters Date Type Department Care Team (Late st Contact Info) Description 06/02/2025 11:40 AM TECHNICAL SUPPORT TECHNICIAN Office Visit [facility] Primary Care [address] [place] [address] Mikhail Fink MD [address] [facility] [address] [place] [address] documented as of this encounter Visit Diagnoses Not on filedocumented in this encounter Care Teams Aerospace Engineer Officer Armament Relationship Specialty Start Date End Date Mikhail Fink MD PCP - General 11/19/07 documented as of this encounter
--- OUTSIDE RECORDS SUMMARY | 2024-12-21 13:01 | XMS_ITS | Encounter Summary ---
Author Organization [facility] Address [address] [place] [address] Care Team Providers Care Snap Shearer Name Role Phone Mikhail Fink MD Primary Care Provider [phone] Encounter Details Date Type Department Care Team (Late st Contact Info) Description 07/09/2004 Outpatient Historical [facility] Internal Medicine [address] [address] Mikhail Fink MD [address] [place] [address] Social History Tobacco Use Types Packs/Day Years Used Date Smoking Tobacco: Never Assessed Sex and Gender Information Value Date Recorded Sex Assigned at Not on file Legal Sex Male 3:10 AM CONVEYOR MONITOR Gender Identity Not on file Sexual Orientation Not on file documented as of this encounter Last Filed Vital Signs Vital Sign Reading Time Taken Comments Blood Pressure 130/78 07/09/2004 10:30 AM CONVEYOR MONITOR Pulse - - Temperature - - Respiratory Rate - - Oxygen Saturation - - Inhaled Oxygen Concentration - - Weight 92.1 kg (203 lb) 07/09/2004 10:30 AM CONVEYOR MONITOR Height - - Body Mass Index - - documented in this encounter Plan of Treatment Upcoming Encounters Date Type Department Care Team (Late st Contact Info) Description 06/02/2025 11:40 AM CONVEYOR MONITOR Office Visit [facility] Primary Care [address] [place] [address] Mikhail Fink MD [address] [place] [address] [address] [place] [address] documented as of this encounter Visit Diagnoses Not on filedocumented in this encounter Care Teams Snap Shearer Relationship Specialty Start Date End Date Mikhail Fink MD PCP - General 11/19/07 documented as of this encounter
--- OUTSIDE RECORDS SUMMARY | 2024-12-21 13:01 | XMS_ITS | Encounter Summary ---
Author Organization [facility] Address [address] [place] [address] Care Team Providers Care Merchandising Internship Name Role Phone Mikhail Fink MD Primary Care Provider [phone] Encounter Details Date Type Department Care Team (Late st Contact Info) Description 04/02/2004 Outpatient Historical [facility] Internal Medicine [address] [address] Mikhail Fink MD [address] [place] [address] Social History Tobacco Use Types Packs/Day Years Used Date Smoking Tobacco: Never Assessed Sex and Gender Information Value Date Recorded Sex Assigned at Not on file Legal Sex Male 3:10 AM CRYPTOLOGIC SUPPORT SPECIALIST Gender Identity Not on file Sexual Orientation Not on file documented as of this encounter Last Filed Vital Signs Vital Sign Reading Time Taken Comments Blood Pressure 130/80 04/02/2004 9:30 AM CDT Pulse - - Temperature - - Respiratory Rate - - Oxygen Saturation - - Inhaled Oxygen Concentration - - Weight 89.8 kg (198 lb) 04/02/2004 9:30 AM CDT Height - - Body Mass Index - - documented in this encounter Plan of Treatment Upcoming Encounters Date Type Department Care Team (Late st Contact Info) Description 06/02/2025 11:40 AM CRYPTOLOGIC SUPPORT SPECIALIST Office Visit [facility] Primary Care [address] [place] [address] Mikhail Fink MD [address] [facility] [address] [place] [address] documented as of this encounter Visit Diagnoses Not on filedocumented in this encounter Care Teams Merchandising Internship Relationship Specialty Start Date End Date iMkhail Fink MD PCP - General 11/19/07 documented as of this encounter
--- OUTSIDE RECORDS SUMMARY | 2024-12-21 13:01 | XMS_ITS | Encounter Summary ---
Author Organization [facility] Address [address] [place] [address] Care Team Providers Care Injection Molding Engineer Name Role Phone Mikhail Fink MD Primary Care Provider [phone] Encounter Details Date Type Department Care Team (Late st Contact Info) Description 07/18/2006 Orders Only [facility] Internal Medicine [address] [address] Mikhail Fink MD [address] [place] [address] Social History Tobacco Use Types Packs/Day Years Used Date Smoking Tobacco: Never Assessed Sex and Gender Information Value Date Recorded Sex Assigned at Not on file Legal Sex Male 3:10 AM RESEARCH ENGINEER MARINE EQUIPMENT Gender Identity Not on file Sexual Orientation Not on file documented as of this encounter Progress Notes * Mikhail Fink MD - 11/02/2007 5:43 PM CDT TEMPERATURE: 36.22??c Oral WEIGHT: 200lbs BLOOD PRESSURE: 140/80 Right Arm Sitting NURSE NAME: Corrie Emanuel R CHIEF COMPLAINT Patient complains of dizziness, nausea. HISTORY: Acute dizziness nausea and vomitting today, assoc with posterior headache, hx of neck surgery, no other gi sx PHYSICAL EXAMINATION: CONSTITUTIONAL: GENERAL APPEARANCE: Healthy appearing patient in no distress. EYES: PUPILS: Pupils equal and normally reactive to light and accommodation.no nystagamus FUNDUSCOPIC EXAM: Ophthalmoscopic examination shows the fundi to be normal. The optic disc are flatand of normal size. There are no hemorrhages or exudates. EARS, NOSE, MOUTH AND THROAT: EARS: CERUMEN INCREASED IN THE EARS BILATERALLY. ORAL: Inspection of gums, lips, palate, [...] hepatosplenomegaly, tenderness or nodularity. Kidneys not palpable. ASSESSMENT/PLAN: 380.4-CERUMEN IMPACTION softener, return if not improved 780.4-VERTIGO/DIZZINESS recurrent, rx, r/o vascular cause MEDICATIONS: COMPAZINE ORAL TABLET 10 MG, 1 Every Eight Hours, As Needed, 20 Dispensed, status: NEW PRESCRIPTION, 07/18/2006. MECLIZINE HCL ORAL TABLET 25 MG, 1 Two Times A Day, As Needed, 30 Dispensed, status: NEW PRESCRIPTION, 07/18/2006. LAB ORDERS: Order number: [id number] Test Ordered: MRI BRAIN W/CONTRAST Order number: [id number] Test Ordered: MRA BRAIN AND NECK RETURN VISIT : Instructed to call if not improving.note for off work today, tomorrow Electronically Signed by: Mikhail Fink MD on Tuesday, July 18, 2006 documented in this encounter Plan of Treatment Upcoming Encounters Date Type Department Care Team (Late st Contact Info) Description 06/02/2025 11:40 AM RESEARCH ENGINEER MARINE EQUIPMENT Office Visit [facility] Primary Care [address] [place] [address] Mikhail Fink MD [address] [place] [address] [address] [place] [address] documented as of this encounter Visit Diagnoses Not on filedocumented in this encounter Care Teams Injection Molding Engineer Relationship Specialty Start Date End Date Mikhail Fink MD PCP - General 11/19/07 documented as of this encounter
--- OUTSIDE RECORDS SUMMARY | 2024-12-21 13:01 | XMS_ITS | Encounter Summary ---
Author Organization [facility] Address [address] [place] [address] Care Team Providers Care Incident Commander Name Role Phone Mikhail Fink MD Primary Care Provider Encounter Details Date Type Department Care Team (Late st Contact Info) Description 08/19/2005 Outpatient Historical [facility] Internal Medicine [address] [address] Mikhail Fink MD [address] [place] [address] [address] [place] [address] Social History Tobacco Use Types Packs/Day Years Used Date Smoking Tobacco: Never Assessed Sex and Gender Information Value Date Recorded Sex Assigned at Not on file Legal Sex Male 3:10 AM ENGINEERING SURVEYOR Gender Identity Not on file Sexual Orientation Not on file documented as of this encounter Plan of Treatment Upcoming Encounters Date Type Department Care Team (Late st Contact Info) Description 06/02/2025 11:40 AM ENGINEERING SURVEYOR Office Visit [facility] Primary Care [address] [place] [address] Mikhail Fink MD [address] [place] [address] [address] [place] [address] documented as of this encounter Visit Diagnoses Not on filedocumented in this encounter Care Teams Incident Commander Relationship Specialty Start Date End Date Mikhail Fink MD PCP - General 11/19/07 documented as of this encounter
--- OUTSIDE RECORDS SUMMARY | 2024-12-21 13:01 | XMS_ITS | Encounter Summary ---
Author Organization [facility] Address [address] [place] [address] Care Team Providers Care Chip Frier Name Role Phone Mikhail Fink MD Primary Care Provider [phone] Encounter Details Date Type Department Care Team (Late st Contact Info) Description 01/21/2005 Outpatient Historical [facility] Internal Medicine [address] [address] Mikhail Fink MD [address] [place] [address] Social History Tobacco Use Types Packs/Day Years Used Date Smoking Tobacco: Never Assessed Sex and Gender Information Value Date Recorded Sex Assigned at Not on file Legal Sex Male 3:10 AM C JAVA DEVELOPER Gender Identity Not on file Sexual Orientation Not on file documented as of this encounter Last Filed Vital Signs Vital Sign Reading Time Taken Comments Blood Pressure 140/80 01/21/2005 10:30 AM CDT Pulse - - Temperature - - Respiratory Rate - - Oxygen Saturation - - Inhaled Oxygen Concentration - - Weight 93 kg (205 lb) 01/21/2005 10:30 AM CDT Height - - Body Mass Index - - documented in this encounter Plan of Treatment Upcoming Encounters Date Type Department Care Team (Late st Contact Info) Description 06/02/2025 11:40 AM C JAVA DEVELOPER Office Visit [facility] Primary Care [address] [place] [address] Mikhail Fink MD [address] [place] [address] [address] [place] [address] documented as of this encounter Visit Diagnoses Not on filedocumented in this encounter Care Teams Chip Frier Relationship Specialty Start Date End Date Mikhail Fink MD PCP - General 11/19/07 documented as of this encounter
--- OUTSIDE RECORDS SUMMARY | 2024-12-21 13:01 | XMS_ITS | Encounter Summary ---
Author Organization [facility] Address [address] [place] [address] Care Team Providers Care Director Of Perioperative Services Name Role Phone Mikhail Fink MD Primary Care Provider [phone] Encounter Details Date Type Department Care Team (Late st Contact Info) Description 07/22/2005 Outpatient Historical [facility] Internal Medicine [address] [address] Mikhail Fink MD [address] [place] [address] Social History Tobacco Use Types Packs/Day Years Used Date Smoking Tobacco: Never Assessed Sex and Gender Information Value Date Recorded Sex Assigned at Not on file Legal Sex Male 3:10 AM ACCOUNTING TUTOR Gender Identity Not on file Sexual Orientation Not on file documented as of this encounter Last Filed Vital Signs Vital Sign Reading Time Taken Comments Blood Pressure 130/80 07/22/2005 11:00 AM ACCOUNTING TUTOR Pulse - - Temperature - - Respiratory Rate - - Oxygen Saturation - - Inhaled Oxygen Concentration - - Weight 94.8 kg (209 lb) 07/22/2005 11:00 AM ACCOUNTING TUTOR Height - - Body Mass Index - - documented in this encounter Plan of Treatment Upcoming Encounters Date Type Department Care Team (Late st Contact Info) Description 06/02/2025 11:40 AM ACCOUNTING TUTOR Office Visit [facility]3] Primary Care [address] [place] [address] Mikhail Fink MD [address] [place] [address] [address] [place] [address] documented as of this encounter Visit Diagnoses Not on filedocumented in this encounter Care Teams Director Of Perioperative Services Relationship Specialty Start Date End Date Mikhail Fink MD PCP - General 11/19/07 documented as of this encounter
--- OUTSIDE RECORDS SUMMARY | 2024-12-21 13:01 | XMS_ITS | Encounter Summary ---
Author Organization [facility] Address [address] [place] [address] Care Team Providers Care Wirer Name Role Phone Mikhail Fink MD Primary Care Provider [phone] Encounter Details Date Type Department Care Team (Late Contact Info) Description 04/20/2007 Outpatient Historical [facility] Internal Medicine [address] [address] Mikhail Fink MD [address] [place] [address] Social History Tobacco Use Types Packs/Day Years Used Date Smoking Tobacco: Never Assessed Sex and Gender Information Value Date Recorded Sex Assigned at Not on file Legal Sex Male 3:10 AM METAL WEIGHER Gender Identity Not on file Sexual Orientation Not on file documented as of this encounter Last Filed Vital Signs Vital Sign Reading Time Taken Comments Blood Pressure 130/80 04/20/2007 1:00 PM METAL WEIGHER Pulse - - Temperature 36.8 C (98.3 F) 04/20/2007 1:00 PM METAL WEIGHER Respiratory Rate - - Oxygen Saturation - - Inhaled Oxygen Concentration - - Weight 93.9 kg (207 lb) 04/20/2007 1:00 PM METAL WEIGHER Height - - Body Mass Index - - documented in this encounter Plan of Treatment Upcoming Encounters Date Type Department Care Team (Late Contact Info) Description 06/02/2025 11:40 AM METAL WEIGHER Office Visit [facility] Primary Care [address] [place] [address] Mikhail Fink MD [address] [place] [address] [address] [place] [address] documented as of this encounter Visit Diagnoses Not on filedocumented in this encounter Care Teams Wirer Relationship Specialty Start Date End Date Mikhail Fink MD PCP - General 11/19/07 documented as of this encounter
--- OUTSIDE RECORDS SUMMARY | 2024-12-21 13:01 | XMS_ITS | Encounter Summary ---
Author Organization [facility] Address [address] [place] [address] Care Team Providers Care Mortician Supplies Sales Representative Name Role Phone Mikhail Fink MD Primary Care Provider [phone] Encounter Details Date Type Department Care Team (Late st Contact Info) Description 03/30/2007 Outpatient Historical [facility] Internal Medicine [address] [address] Mikhail Fink MD [address] [place] [address] [address] [place] [address] Social History Tobacco Use Types Packs/Day Years Used Date Smoking Tobacco: Never Assessed Sex and Gender Information Value Date Recorded Sex Assigned at Not on file Legal Sex Male 3:10 AM MOTOR AND CHASSIS INSPECTOR Gender Identity Not on file Sexual Orientation Not on file documented as of this encounter Plan of Treatment Upcoming Encounters Date Type Department Care Team (Late Contact Info) Description 06/02/2025 11:40 AM MOTOR AND CHASSIS INSPECTOR Office Visit [facility] Primary Care [address] [place] [address] Mikhail Fink MD [address] [place] [address] [address] [place] [address] documented as of this encounter Visit Diagnoses Not on filedocumented in this encounter Care Teams Mortician Supplies Sales Representative Relationship Specialty Start Date End Date Mikhail Fink MD PCP - General 11/19/07 documented as of this encounter
--- OUTSIDE RECORDS SUMMARY | 2024-12-21 13:01 | XMS_ITS | Clinical Summary ---
Author Organization [facility] Address [address] [place] [address] Phone Care Team Providers Care Make Up Operator Name Role Phone Mikhail Fink MD Primary Care Provider Allergies Active Allergy Reactions Criticality Noted Date Comments Cefadroxil Rash 01/11/2024 Cephalexin Rash 01/11/2024 Sulfamethoxazole-Trimethopr im Nausea,Other (see Comments) 01/11/2024 fever Medications amLODIPine (NORVASC) 5 MG Tablet Take 5 mg by mouth every morning. Active aspirin EC 81 MG Tablet Delayed Response Take 162 mg by mouth daily. Active atorvastatin (LIPITOR) 20 MG Tablet Take 20 mg by mouth daily (with dinner). Active CHOLECALCIFEROL PO Take 1 Tablet by mouth daily. Active levothyroxine (SYNTHROID) 88 MCG Tablet Take 88 mcg by mouth every morning (before breakfast). Active lisinopril (PRINIVIL, ZESTRIL) 5 MG Tablet Take 5 mg by mouth in the morning and at bedtime. Active metFORMIN (GLUCOPHAGE-XR) 500 MG TABLET SR 24 HR Take 500 mg by mouth every evening. This RX is for Metformin SR. Active Multiple Vitamin (MULTIVITAMIN PO) Take 1 Tablet by mouth daily. Active Toledo-3 Fatty Acids (OMEGA 3 PO) Take 1 Capsule by mouth daily. Active omeprazole (PriLOSEC) 20 MG CAPSULE DELAYED RELEASE Take 20 mg by mouth daily. Active tamsulosin (FLOMAX) 0.4 MG Capsule Take 0.4 mg by mouth daily. Active Family History Medical History Relation Name Comments Heart Attack Father Hypertension Father Stroke Father Hypertension Mother Relation Name Status Comments Father Mother Social History Tobacco Use Types Packs/Day Years Used Date Smoking Tobacco: Never Smokeless Tobacco: Never Tobacco Cessation:Counseling Given: Not Answered Alcohol Use Standard Drinks/Week Comments Never 0 (1 standard drink = 0.6 oz pur e alcohol) Sex and Gender Information Value Date Recorded Sex Assigned at Not on file Legal Sex Male 9:24 PM CDT Gender Identity Not on file Sexual Orientation Not on file Last Filed Vital Signs Vital Sign Reading Time Taken Comments Blood Pressure 135/79 03/11/2024 9:49 AM CDT Pulse 55 03/11/2024 9:49 AM CDT Temperature 36.3 C (97.4 F) 03/11/2024 9:49 AM CDT Respiratory Rate 16 03/11/2024 9:49 AM CDT Oxygen Saturation 98% 03/11/2024 9:49 AM CDT Inhaled Oxygen Concentration - - Weight 92.5 kg (204 lb) 02/29/2024 2:52 PM CDT Height 182.9 cm (6') 02/29/2024 2:52 PM CDT Body Mass Index 27.67 02/29/2024 2:52 PM CDT Plan of Treatment Not on file Medical Devices Implanted Type Area Supervisor Shipping Device Identifier Shelf Expiration Date Model / Serial / Lot Right Lens Implanted:Qty: 1 on 01/15/2024 by Charley Mcpherson MD PhD at [facility] Right: Eye NIR & NIR 11/08/2026 [id number] / [id number] / [id number] [employer] Iol Implanted:Qty: 1 on 03/11/2024 by Santiago Ya MD at [facility] Left: Eye 01/24/2027 [id number] / [id number] / [id number] Insurance MEDICARE C [employer] Care Teams Make Up Operator Relationship Specialty Start Date End Date Mikhail Fink MD [address] [place] [address] PCP - General 01/15/24
--- OUTSIDE RECORDS SUMMARY | 2024-12-21 13:01 | XMS_ITS | Encounter Summary ---
Author Organization [facility] Address [address] [place] [address] Care Team Providers Care Promotions Associate Name Role Phone Mikhail Fink MD Primary Care Provider [phone] Encounter Details Date Type Department Care Team (Late st Contact Info) Description 09/29/2006 Orders Only [facility] Internal Medicine [address] [address] Mikhail Fink MD [address] [place] [address] Social History Tobacco Use Types Packs/Day Years Used Date Smoking Tobacco: Never Assessed Sex and Gender Information Value Date Recorded Sex Assigned at Not on file Legal Sex Male 3:10 AM HARBORMASTER Gender Identity Not on file Sexual Orientation Not on file documented as of this encounter Progress Notes * Mikhail Fink MD - 11/01/2007 5:13 PM CDT WEIGHT: 204lbs BLOOD PRESSURE: 130/80 Right Arm Sitting NURSE NAME: Corrie Emanuel R CHIEF COMPLAINT Patient here for follow up hyperlipidemia, hypothyroidism. HISTORY: HISTORY: 244.9-HYPOTHYROIDISM The patient denies any symptoms of hypothyroidism such as dry skin, hoarseness, loss of energy, cold intolerance, or weight gain. 272.4-HYPERLIPIDEMIA The patient is tolerating the medications. 380.4-CERUMEN IMPACTION The patient's cerumen impaction has improved. 715.00-OSTEOARTHROSIS AND ALLIED DISORDERS The arthritis is stable. The patient has joint pain and stiffness. 780.4-VERTIGO/DIZZINESS recurrent, reviewed tests, still with sinus jorge ear full ROS: CARDIAC: No chest pain, palpitations, orthopnea, dyspnea on exertion, or paroxysmal nocturnal dyspnea. RESPIRATORY: No dyspnea, cough, hemoptysis or wheezing. : No dysuria or hematuria. GI: No abdominal pain, nausea, vomiting, diarrhea, constipation, melena, or hematochezia. PAST MEDICAL HISTORY: reviewed FAMILY HISTORY: CAD SOCIAL HISTORY: TOBACCO USE: Has no significant smoking history. ALCOHOL: Does not give any significant history of alcohol usage. EXERCISES: The patient is not exercising regularly. PHYSICAL EXAMINATION: CONSTITUTIONAL: GENERAL APPEARANCE: Healthy appearing patient in no distress. EARS, NOSE, MOUTH AND THROAT: EARS: EFFUSION PRESENT BILATERALLY, cerumen normal in both ears. ORAL: Inspection of gums, lips, palate, and [...] nodularity. Kidneys not palpable. NEUROLOGIC: CRANIAL NERVES: seismograph helper II-XII grossly intact. ASSESSMENT/PLAN: 244.9-HYPOTHYROIDISM cont med, recheck lab LAB ORDERS: fasting--3 mo Order number: [id number] Test Ordered: COMPREHENSIVE METABOLIC PANEL W/ GLOMERULAR FILTRATION RATE, ESTIMATED (EGFR) 25478 Order number: [id number] Test Ordered: LIPID PANEL 7600 Order number: [id number] Test Ordered: TSH 899 272.4-HYPERLIPIDEMIA cont med, enc diet and exercise, brother [place] young age 780.4-VERTIGO/DIZZINESS rx sinus reasssess 461.9-SINUSITIS UNSPECIFIED MEDICATIONS: ZITHROMAX Z-ALLYSSA ORAL TABLET 250 MG, DIRECTED, 1 Dispensed, status: NEW PRESCRIPTION, 09/29/2006. FLONASE NASAL SUSPENSION 50 MCG/ACT, 2 Every Morning, 1 Dispensed, status: NEW PRESCRIPTION, 09/29/2006. PREVENTIVE COUNSELING The patient was counseled regarding diet, regular sustained exercise for at least 30 minutes 3-4 times per week. RETURN VISIT : Patient instructed to return in 3 months. Electronically Signed by: Mikhail Fink MD on Friday, September 29, 2006 documented in this encounter Plan of Treatment Upcoming Encounters Date Type Department Care Team (Late st Contact Info) Description 06/02/2025 11:40 AM HARBORMASTER Office Visit [facility] Primary Care [address] [address] Mikhail Fink MD [address] [place] [address] documented as of this encounter Visit Diagnoses Not on filedocumented in this encounter Care Teams Promotions Associate Relationship Specialty Start Date End Date Mikhail Fink MD PCP - General 11/19/07 documented as of this encounter
--- OUTSIDE RECORDS SUMMARY | 2024-12-21 13:01 | XMS_ITS | Encounter Summary ---
Author Organization [facility] Address [address] [place] [address] Care Team Providers Care Master Planner Name Role Phone Mikhail Fink MD Primary Care Provider Encounter Details Date Type Department Care Team (Late st Contact Info) Description 07/18/2006 Outpatient Historical [facility] Internal Medicine [address] [address] Mikhail Fink MD [address] [place] [address] [address] [place] [address] Social History Tobacco Use Types Packs/Day Years Used Date Smoking Tobacco: Never Assessed Sex and Gender Information Value Date Recorded Sex Assigned at Not on file Legal Sex Male 3:10 AM BARGE PILOT Gender Identity Not on file Sexual Orientation Not on file documented as of this encounter Plan of Treatment Upcoming Encounters Date Type Department Care Team (Late st Contact Info) Description 06/02/2025 11:40 AM BARGE PILOT Office Visit [facility] Primary Care [address] [place] [address] Mikhail Fink MD [address] [place] [address] [address] [place] [address] documented as of this encounter Visit Diagnoses Not on filedocumented in this encounter Care Teams Master Planner Relationship Specialty Start Date End Date Mikhail Fink MD PCP - General 11/19/07 documented as of this encounter
--- OUTSIDE RECORDS SUMMARY | 2024-12-21 13:01 | XMS_ITS | Encounter Summary ---
Author Organization [facility] Address [address] [place] [address] Care Team Providers Care Sugar Cane Planting Equipment Operator Name Role Phone Mikhail Fink MD Primary Care Provider [phone] Encounter Details Date Type Department Care Team (Late st Contact Info) Description 12/22/2006 Orders Only [facility] Internal Medicine [address] [address] Mikhail Fink MD [address] [place] [address] Social History Tobacco Use Types Packs/Day Years Used Date Smoking Tobacco: Never Assessed Sex and Gender Information Value Date Recorded Sex Assigned at Not on file Legal Sex Male 3:10 AM NISSAN SALES CONSULTANT Gender Identity Not on file Sexual Orientation Not on file documented as of this encounter Progress Notes * Mikhail Fink MD - 10/31/2007 10:20 AM CDT WEIGHT: 206lbs BLOOD PRESSURE: 120/80 Right Arm Sitting NURSE NAME: Corrie Emanuel R TOBACCO USE Patient does not currently use tobacco. CHIEF COMPLAINT Patient here for follow up hyperlipidemia, hypothyroidism. HISTORY: HISTORY: 244.9-HYPOTHYROIDISM The hypothyroidism is stable. 272.4-HYPERLIPIDEMIA The patient`s most recent labs reviewed. 780.4-VERTIGO/DIZZINESS The vertigo has improved. SOCIAL HISTORY: TOBACCO USE: Has no significant smoking history. DISCUSSED SMOKING: neg. PHYSICAL EXAMINATION: CONSTITUTIONAL: GENERAL APPEARANCE: Healthy appearing patient in no distress. EARS, NOSE, MOUTH AND THROAT: EARS: EFFUSION PRESENT BILATERALLY. ORAL: Inspection of gums, lips, palate, [...] tenderness or nodularity. Kidneys not palpable. ASSESSMENT/PLAN: 244.9-HYPOTHYROIDISM cont med LAB ORDERS: 4 mo Order number: [id number] Test Ordered: COMPREHENSIVE METABOLIC PANEL & GFR 1112 Order number: [id number] Test Ordered: LIPID PANEL 1078 Order number: [id number] Test Ordered: TSH 1720 272.4-HYPERLIPIDEMIA change alt med MEDICATIONS: ZOCOR ORAL TABLET 40 MG, 1 Every Day, 90 Dispensed, 4 Fills, 90 Duration/Days Supply, status: DISCONTINUED, 12/22/2006. VYTORIN ORAL TABLET 10-40 MG, 1 Every Day, 90 Dispensed, 3 Fills, 90 Duration/Days Supply, status: NEW PRESCRIPTION, 12/22/2006. 780.4-VERTIGO/DIZZINESS suspect sinus related med if inc jorge MEDICATIONS: FLONASE NASAL SUSPENSION 50 MCG/ACT, 2 Every Morning, 3 Dispensed, 3 Fills, status: CONTINUED, 12/22/2006. RETURN VISIT : Patient instructed to return in 4 months. Electronically Signed by: Mikhail Fink MD on Friday, December 22, 2006 documented in this encounter Plan of Treatment Upcoming Encounters Date Type Department Care Team (Late st Contact Info) Description 06/02/2025 11:40 AM NISSAN SALES CONSULTANT Office Visit [facility] [address] [place] [address] Mikhail Fink MD [address] [place] [address] documented as of this encounter Visit Diagnoses Not on filedocumented in this encounter Care Teams Sugar Cane Planting Equipment Operator Relationship Specialty Start Date End Date Mikhail Fink MD PCP - General 11/19/07 documented as of this encounter
--- OUTSIDE RECORDS SUMMARY | 2024-12-21 13:01 | XMS_ITS | Encounter Summary ---
Author Organization [facility] Address [address] [place] [address] Care Team Providers Care Hemodialysis Technician Name Role Phone Mikhail Fink MD Primary Care Provider [phone] Encounter Details Date Type Department Care Team (Late st Contact Info) Description 08/17/2006 Orders Only [facility] Internal Medicine [address] [address] Mikhail Fink MD [address] [place] [address] [address] [place] [address] Social History Tobacco Use Types Packs/Day Years Used Date Smoking Tobacco: Never Assessed Sex and Gender Information Value Date Recorded Sex Assigned at Not on file Legal Sex Male 3:10 AM PATROL AGENT Gender Identity Not on file Sexual Orientation Not on file documented as of this encounter Plan of Treatment Upcoming Encounters Date Type Department Care Team (Late st Contact Info) Description 06/02/2025 11:40 AM PATROL AGENT Office Visit [facility] Primary Care [address] [place] [address] Mikhail Fink MD [address] [place] [address] [address] [place] [address] documented as of this encounter Visit Diagnoses Not on filedocumented in this encounter Care Teams Hemodialysis Technician Relationship Specialty Start Date End Date Mikhail Fink MD PCP - General 11/19/07 documented as of this encounter
--- OUTSIDE RECORDS SUMMARY | 2024-12-21 13:01 | XMS_ITS | Encounter Summary ---
Author Organization [facility] Address 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 Gender Identity Not on file Sexual Orientation Not on file documented as of this encounter Progress Notes * Mikhail Fink MD - 10/30/2007 3:18 PM CDT WHO TOOK THE CALL: Mikhail Fink M TIME:02:47 pm documented in this encounter Plan of Treatment Upcoming Encounters Date Type Department Care Team (Late st Contact Info) Description 06/02/2025 11:40 AM AUTOMOBILE UPHOLSTERER Office Visit [facility] Primary Care [address] [place] [address] Mikhail Fink MD [address] [place] [address] [place] [address] documented as of this encounter Visit Diagnoses Not on filedocumented in this encounter Care Teams Computer Support Specialist Instructor Relationship Specialty Start Date End Date Mikhail Fink MD PCP - General 11/19/07 documented as of this encounter
--- OUTSIDE RECORDS SUMMARY | 2024-12-21 13:01 | XMS_ITS | Encounter Summary ---
Author Organization [facility] Address 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 CHIEF COMPLAINT Patient here for follow up Gastroesophageal Reflex Disease (GERD), hyperlipidemia, hypothyroidism. HISTORY: HISTORY: 244.9-HYPOTHYROIDISM The hypothyroidism is stable. 272.4-HYPERLIPIDEMIA The patient is tolerating the medications. The patient is somewhat compliant with the low saturated fat diet. PHYSICAL EXAMINATION: CONSTITUTIONAL: GENERAL APPEARANCE: Healthy appearing patient in no distress. NECK/THYROID: Trachea midline. No thyroid enlargement, tenderness, [...] nodularity. Kidneys not palpable. ASSESSMENT/PLAN: 244.9-HYPOTHYROIDISM cont med, recheck lab LAB ORDERS: 4 mo Order number: [id number] Test Ordered: INJ-DTAP 11 YRS OR OLDER [address] Order number: [id number] Test Ordered: COMPREHENSIVE METABOLIC PANEL & GFR 1112 Order number: [id number] Test Ordered: LIPID PANEL 1078 Order number: [id number] Test Ordered: TSH 1720 272.4-HYPERLIPIDEMIA cont med enc diet and ex RETURN VISIT : Patient instructed to return in 4 months. Electronically Signed by: Mikhail Fink MD on Friday, March 30, 2007 documented in this encounter Plan of Treatment Upcoming Encounters Date Type Department Care Team (Late st Contact Info) Description 06/02/2025 11:40 AM OPTICAL GLASS ETCHER Office Visit [facility] Primary Care [address] [address] Mikhail Fink MD [address] [place] [phone] documented as of this encounter Visit Diagnoses Not on filedocumented in this encounter Care Teams Investment Sales Assistant Relationship Specialty Start Date End Date Mikhail Fink MD PCP - General 11/19/07 documented as of this encounter
--- OUTSIDE RECORDS SUMMARY | 2024-12-21 13:02 | XMS_ITS | Encounter Summary ---
Author Organization [facility] Address 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 HISTORY: HISTORY: 244.9-HYPOTHYROIDISM The hypothyroidism is stable. 272.4-HYPERLIPIDEMIA The patient is tolerating the medications. 715.90-OSTEOARTHROSIS UNSPECIFIED The patient has joint pain and stiffness.heel right foot PHYSICAL EXAMINATION: CONSTITUTIONAL: GENERAL APPEARANCE: Healthy appearing patient in no distress. NECK/THYROID: Trachea midline. No thyroid enlargement, tenderness, or mass. No supraclavicular or cervical adenopathy. RESPIRATORY: Clear to auscultation and percussion. Normal respiratory effort. CARDIOVASCULAR: CARDIAC: Regular rhythm. No murmurs, rubs, or gallops. ARTERIAL: Aortic pulses of normal amplitude with no bruits. EDEMA/VARICOSITIES OF EXTREMITIES: No edema or varicosities. GASTROINTESTINAL: ABDOMEN: Soft, non-tender, without masses. Bowel sounds active. LIVER/SPLEEN/KIDNEY: No hepatosplenomegaly, tenderness or nodularity. Kidneys not palpable. heel tender right foot ASSESSMENT/PLAN: 244.9-HYPOTHYROIDISM cont med 272.4-HYPERLIPIDEMIA contmed LAB ORDERS: today Order number: [id number] Test Ordered: COMPREHENSIVE METABOLIC PANEL & GFR 1099 Order number: [id number] Test Ordered: LIPID PANEL 1078 Order number: [id number] Test Ordered: TSH 1720 715.00-OSTEOARTHROSIS AND ALLIED DISORDERS [facility], podiatry if worsens RETURN VISIT : Patient instructed to return in 6 months. Electronically Signed by: Mikhail Fink MD on Friday, March 31, 2006 documented in this encounter Plan of Treatment Upcoming Encounters Date Type Department Care Team (Late st Contact Info) Description 06/02/2025 11:40 AM LARGE ANIMAL VETERINARIAN Office Visit [facility] [place] [address] Mikhail Fink MD [address] [place], [place] [phone] documented as of this encounter Visit Diagnoses Not on filedocumented in this encounter Care Teams Water Filterer Helper Relationship Specialty Start Date End Date Mikhail Fink MD PCP - General 11/19/07 documented as of this encounter
--- OUTSIDE RECORDS SUMMARY | 2024-12-21 13:02 | XMS_ITS | Encounter Summary ---
Author Organization [facility] Address [address] [place] [address] Care Team Providers Care Human Resource Intern Name Role Phone Mikhail Fink MD Primary Care Provider [phone] Encounter Details Date Type Department Care Team (Late Contact Info) Description 03/31/2006 Outpatient Historical [facility] Internal Medicine [address] [address] Mikhail Fink MD [address] [place] [address] Social History Tobacco Use Types Packs/Day Years Used Date Smoking Tobacco: Never Assessed Sex and Gender Information Value Date Recorded Sex Assigned at Not on file Legal Sex Male 3:10 AM DIRECTOR OF TRAINING Gender Identity Not on file Sexual Orientation Not on file documented as of this encounter Last Filed Vital Signs Vital Sign Reading Time Taken Comments Blood Pressure 130/78 03/31/2006 9:15 AM CDT Pulse - - Temperature - - Respiratory Rate - - Oxygen Saturation - - Inhaled Oxygen Concentration - - Weight 88.9 kg (196 lb) 03/31/2006 9:15 AM CDT Height - - Body Mass Index - - documented in this encounter Plan of Treatment Upcoming Encounters Date Type Department Care Team (Late st Contact Info) Description 06/02/2025 11:40 AM DIRECTOR OF TRAINING Office Visit [facility] Primary Care [address] [place] [address] Mikhail Fink MD [address] [facility][1] [address] [place] [address] documented as of this encounter Visit Diagnoses Not on filedocumented in this encounter Care Teams Human Resource Intern Relationship Specialty Start Date End Date Mikhail Fink MD PCP - General 11/19/07 documented as of this encounter
[2024-12-21 13:08] VITALS: BP 150/72; PULSE 96; RESP 18; TEMP 37; O2SAT 98
--- NOTE | 2024-12-21 13:15 | ED_ITS ---
HPI - General Adult General Chief complaint: Skin/Abscess/Foreign Body Stated complaint: poison sumac Time Seen by Provider: 12/21/24 13:15 Source: patient Mode of arrival: ambulatory Limitations: no limitations History of Present Illness HPI narrative: 68-year-old male patient presents to the [facility] with complaints of a rash to bilateral lower extremities. Patient states he has concerns that this could be poison sumac due the fact that he has had this before and he was doing some work in the [employer] when it occurred. Patient states he was called in some methylprednisone but was only on the course for about for 5 days from his primary doctor. Patient states that it really did not do anything to help with the rash. Patient states that he was seen here and the [facility] [place] and was given prednisone for 10 days and states it was starting to go away but as soon as the prescription ran out the rash started to come back. Patient states he has been using some [id number] calamine lotion to help with the itching. Denies any fevers body aches or chills. Denies any chest pain, shortness of breath. Denies any abdominal pain nausea vomiting or diarrhea. Related Data Home Medications ?Medication ?Instructions ?Recorded ?Confirmed ?Last Taken ?Type amlodipine 5 mg tablet mg 12/02/24 Unknown History atorvastatin 20 mg tablet mg 12/02/24 Unknown History levothyroxine 88 mcg tablet mcg 12/02/24 Unknown History lisinopril 5 mg tablet mg 12/02/24 Unknown History metformin 500 mg tablet mg 12/02/24 Unknown History omeprazole 20 mg capsule,delayed mg 12/02/24 Unknown History release tamsulosin 0.4 mg capsule mg PO 12/02/24 Unknown History Allergies Allergy/AdvReac Type Severity Reaction Status Date / Time Sulfa (Sulfonamide Allergy Unknown Unknown Verified 12/21/24 13:07 Antibiotics) Review of Systems Review of Systems: CONSTITUTIONAL: Denies fever, chills, or sweats. EYES: Denies visual changes, redness, or discharge. ENT: Denies rhinorrhea, congestion, sore throat, or otalgia. CARDIOVASCULAR: Denies chest pain, palpitations, or edema. RESPIRATORY: Denies cough or dyspnea. GASTROINTESTINAL: Denies abdominal pain, nausea, vomiting, or diarrhea. GENITOURINARY: Denies dysuria or hematuria. SKIN: Positive rash with itching to bilateral lower extremities. MUSCULOSKELETAL: Denies back pain, joint pain, or myalgia. NEUROLOGIC: Denies headache, numbness, or weakness. PSYCHIATRIC: Denies anxiety or depression. [facility] Past Medical History Medical History (Updated 12/21/24 @ 13:32 by JAMIE Alexandra) Diabetes Hypercholesteremia Hypertension Hypothyroidism Comments At the time of my signature I agree with nursing past medical history, surgical, social, and family history. There is no relevant family history pertinent to the presenting complaint. Exam Narrative: GENERAL: Well-appearing, well-nourished, and in no acute distress. HEAD: Normocephalic, atraumatic. EYES: PERRLA and EOMI. ENT: Nares clear, no rhinorrhea or epistaxis. Mucous membranes moist. NECK: Supple. No lymphadenopathy CHEST: Clear to auscultation. No respiratory distress. HEART: Regular rate and rhythm. No murmur heard. Normal peripheral pulses. ABDOMEN: Soft, nontender, nondistended, normal active bowel sounds. EXTREMITIES: Normal range of motion. No edema. SKIN: Warm, dry, no rash. NEURO: No focal deficits. Alert and oriented x3. Course Course Level of Care: Express Care Visit Vital Signs Vital signs: Vital Signs Temperature 37.0 C 12/21/24 13:08 Pulse Rate 96 12/21/24 13:08 Respiratory Rate 18 12/21/24 13:08 Blood Pressure 150/72 H 12/21/24 13:08 Pulse Oximetry 98 12/21/24 13:08 Oxygen Delivery Room Air 12/21/24 13:08 Temperature 37.0 C 12/21/24 13:08 Pulse Rate 96 12/21/24 13:08 Respiratory Rate 18 12/21/24 13:08 Blood Pressure 150/72 H 12/21/24 13:08 Pulse Oximetry 98 12/21/24 13:08 Oxygen Delivery Room Air 12/21/24 13:08 Vital signs reviewed. The patient has been informed that they may have pre-hypertension or Hypertension based on a BP reading in the department. I recommend that the patient call the primary care provider listed on their discharge instructions or a physician of their choice this week to arrange follow up for further evaluation of possible pre-hypertension or Hypertension Medical Decision Making MDM Narrative Medical decision making narrative: discussed with patient that we will try and put him on a 15 day steroid taper to hopefully get rid of the rash of the rash. Highly recommend also take an antihistamine to help with the itching. Patient verbalized understanding denies any other questions or concerns at this time. Differential Diagnosis Differential Diagnosis: Differential diagnosis: Contact dermatitis, poison brittney, poison sumac, psoriasis, eczema, allergic reaction, drug reaction, scabies, tinea syphilis, lung disease, viral exanthema, pityriasis, erythema multiforme. Vital Signs Vital Signs: Vital Signs Temperature 37.0 C 12/21/24 13:08 Pulse Rate 96 12/21/24 13:08 Respiratory Rate 18 12/21/24 13:08 Blood Pressure 150/72 H 12/21/24 13:08 Pulse Oximetry 98 12/21/24 13:08 Oxygen Delivery Room Air 12/21/24 13:08 Temperature 37.0 C 12/21/24 13:08 Pulse Rate 96 12/21/24 13:08 Respiratory Rate 18 12/21/24 13:08 Blood Pressure 150/72 H 12/21/24 13:08 Pulse Oximetry 98 12/21/24 13:08 Oxygen Delivery Room Air 12/21/24 13:08 Critical Care Time Critical Care Time Critical Care Time: No Discharge Plan Discharge Clinical Impression: Contact dermatitis due to plant Patient Disposition: Home Condition: Stable Instructions: Antibiotic Form, Contact Dermatitis (ED) Additional Instructions: Wash the area with soap and cool water only. Use skin creams/lotion or anti-itch medicine to reduce itchiness. please take an oral 24 hour antihistamine to help with the itching. Something such as Zyrtec, Claritin or Iesha Avoid scratching when possible to prevent worsening of the condition and disruption of the skin that could lead to bacterial infection To relieve itching, place a cool washcloth or some ice over the area that itches, rather than scratching Follow up with primary care provider or seek ER if you have trouble breathing, become hoarse, or start wheezing, develop belly cramps, vomiting or feel dizzy. Patient Language: Fijian Prescriptions: New prednisone 10 mg tablets,dose pack See Rx Instructions .ROUTE .COMPLEX Qty: 48 0RF Rx Instructions: 50 mg x 3 days, 40 mg x 3 days, 30 mg x 3 days, 20 mg x 3 days, 10 mg x 3 days No Action metformin 500 mg tablet atorvastatin 20 mg tablet amlodipine 5 mg tablet levothyroxine 88 mcg tablet tamsulosin 0.4 mg capsule PO omeprazole 20 mg capsule,delayed release(DR/EC) lisinopril 5 mg tablet Follow-up/Referrals: Aleks,Mikhail Livingston MD [Primary Care Provider] - Time of Disposition: 13:28
== END 2024-12-21 13:36 | disposition home or self-care (01) ==
PROVIDERS: Emergency Provider Nurse Practitioner Family; PCP Internal Medicine
DX: L25.5 Unspecified contact dermatitis due to plants, except food (principal); E03.9 Hypothyroidism, unspecified; E11.9 Type 2 diabetes mellitus without complications; I10 Essential (primary) hypertension
CPT/HCPCS: 99213; G0463